=== PATIENT | female | born 1985 | race Caucasian/White ===

== ENCOUNTER 2017-01-08 11:58 | Emergency (ER) | payer SELFPAY ==
[~2017-01-08] VITALS: Ht 157.5 cm; Wt 46.7 kg
[2017-01-08 12:02] VITALS: Ht 157.5 cm; Wt 46.7 kg
--- OUTSIDE RECORDS SUMMARY | 2017-01-08 12:05 | XMS REPORT | Continuity of Care Document ---
Author Author [facility] Organization [facility] Address Unknown Phone Unavailable Allergies Active Description Code Type Severity Reaction Onset Reported/Identified Relationship to Patient Clinical Status Yes Penicillins Penicillins Drug Allergy Unknown RASH,REDNESS, EYES SWELL 10/24/2015 Yes Penicillins Penicillins Drug Allergy Unknown RASH,REDNESS, EYES SWELL 01/09/2016 Medications Problems Procedures Results Test Result Range URINALYSIS, ROUTINE - 10/18/15 21:20 UA LEUKOCYTE ESTERASE DIPSTICK 2+ NEGATIVE UA NITRITE DIPSTICK POSITIVE NEGATIVE UA PROTEIN DIPSTICK 2+ NEGATIVE UA GLUCOSE DIPSTICK NEGATIVE NEGATIVE UA KETONE DIPSTICK NEGATIVE NEGATIVE UA UROBILINOGEN DIPSTICK NORMAL NORMAL UA BILIRUBIN DIPSTICK NEGATIVE NEGATIVE UA BLOOD DIPSTICK 4+ NEGATIVE UA SPECIFIC GRAVITY 1.020 1.015-1.025 UR PH 6.5 5.0-7.0 UA MICROSCOPIC - 10/18/15 21:20 UA AMORPHOUS SEDIMENT NEGATIVE UA BACTERIA 2+ NEGATIVE UA BILIRUBIN CRYSTALS N NEGATIVE UA CALCIUM OXALATE CRYSTALS N NEGATIVE UA CYSTINE CRYSTALS N NEGATIVE UA EPITHELIAL CELLS 1+ epi/hpf 0 - 1+ UA LEUCINE CRYSTALS N NEGATIVE UA MUCUS NEGATIVE NEG TO 1+ UA RBC 3-5 rbc/hpf 0 - 3 UA TRICHOMONAS NEGATIVE NEGATIVE UA TRIPLE PHOSPHATE CRYSTALS N NEGATIVE UA TYROSINE CRYSTALS N NEGATIVE UA VOLUME FOR EXAM 12.0 mL (12mL STD) UA URIC ACID CRYSTALS N NEGATIVE UA WBC 50-100 wbc/hpf 0 - 5 UA YEAST NEGATIVE NEGATIVE URINE CULTURE - 10/18/15 21:20 Microbiology URINALYSIS, ROUTINE - 10/24/15 08:25 UA LEUKOCYTE ESTERASE DIPSTICK 2+ NEGATIVE UA NITRITE DIPSTICK NEGATIVE NEGATIVE UA PROTEIN DIPSTICK 2+ NEGATIVE UA GLUCOSE DIPSTICK NEGATIVE NEGATIVE UA KETONE DIPSTICK NEGATIVE NEGATIVE UA UROBILINOGEN DIPSTICK NORMAL NORMAL UA BILIRUBIN DIPSTICK NEGATIVE NEGATIVE UA BLOOD DIPSTICK 4+ NEGATIVE UA SPECIFIC GRAVITY 1.020 1.015-1.025 UR PH 6.0 5.0-7.0 UA MICROSCOPIC - 10/24/15 08:25 UA BACTERIA 3+ NEGATIVE UA CALCIUM OXALATE CRYSTALS PRESENT NEGATIVE UA EPITHELIAL CELLS 1+ epi/hpf 0 - 1+ UA MUCUS 2+ NEG TO 1+ UA RBC 20-50 rbc/hpf 0 - 3 UA VOLUME FOR EXAM 12.0 mL (12mL STD) UA WBC >100 wbc/hpf 0 - 5 URINE CULTURE - 10/24/15 08:25 Microbiology CBC W/DIFF - 10/24/15 08:55 EOSINOPHIL # 0.1 k/cumm 0.1-0.5 EOSINOPHIL % 1 % 2-4 GRANULOCYTE # 2.7 k/cumm 2.0-9.0 GRANULOCYTE % 48 % 50-75 LYMPHOCYTE # 2.4 k/cumm 1.0-4.0 LYMPHOCYTE % 42 % 20-30 MEAN CELL HGB 26.7 pg 27.0-33.0 MEAN CELL HGB CONCENTRATION 32.7 g/dL 32.0-37.0 MEAN CELL VOLUME 81.7 fl 80.0-100.0 MONOCYTE # 0.5 k/cumm 0.1-1.0 MONOCYTE % 9 % 4-6 RED BLOOD CELL 4.20 m/cumm 4.00-6.00 RED CELL DISTRIBUTION WIDTH 15.7 % 11.0- 15.6 WHITE BLOOD CELL 5.7 k/cumm 5.0-10.0 HEMOGLOBIN 11.2 gm/dL 12.0-16.0 HEMATOCRIT 34.3 % 37.0-47.0 PLATELET COUNT 232 k/cumm 150-450 METABOLIC PANEL, COMPREHN - 10/24/15 08:55 POTASSIUM 3.6 mmol/L 3.5-5.3 EST GFR (MDRD) > 60 mL/min > 59 ANION GAP 8 mmol/L 5-15 EST CrCl (CG) > 60 mL/min > 59 GLUCOSE 92 mg/dL 70-99 CALCIUM 8.7 mg/dL 8.5-10.1 BLOOD UREA NITROGEN 14 mg/dL 7-20 CREATININE 0.8 mg/dL 0.6-1.0 SODIUM 138 mmol/L 135-148 CHLORIDE 103 mmol/L 98-110 AST/SGOT 19 Units/L 10-37 ALT/SGPT 16 Units/L < 66 CARBON DIOXIDE 27 mmol/L 21-32 TOTAL PROTEIN 7.8 gm/dL 6.4-8.2 ALBUMIN 3.7 gm/dL 3.4-5.0 BILI TOTAL 0.4 mg/dL 0.0-1.0 ALKALINE PHOSPHATASE TOTAL 64 IU/L 45- 117 URINALYSIS, ROUTINE - 10/27/15 09:08 UA LEUKOCYTE ESTERASE DIPSTICK 2+ NEGATIVE UA NITRITE DIPSTICK NEGATIVE NEGATIVE UA PROTEIN DIPSTICK 2+ NEGATIVE UA GLUCOSE DIPSTICK NEGATIVE NEGATIVE UA KETONE DIPSTICK NEGATIVE NEGATIVE UA UROBILINOGEN DIPSTICK NORMAL NORMAL UA BILIRUBIN DIPSTICK NEGATIVE NEGATIVE UA BLOOD DIPSTICK 3+ NEGATIVE UA SPECIFIC GRAVITY 1.020 1.015-1.025 UR PH 6.0 5.0-7.0 UA MICROSCOPIC - 10/27/15 09:08 UA BACTERIA 2+ NEGATIVE UA EPITHELIAL CELLS 2+ epi/hpf 0 - 1+ UA RBC 5-10 rbc/hpf 0 - 3 UA VOLUME FOR EXAM 12.0 mL (12mL STD) UA WBC 50-100 wbc/hpf 0 - 5 UR TEST - 10/27/15 09:08 UR TEST NEGATIVE NEGATIVE URINE CULTURE - 10/27/15 09:08 Microbiology CBC W/DIFF - 10/27/15 09:40 EOSINOPHIL # 0.1 k/cumm 0.1-0.5 EOSINOPHIL % 1 % 2-4 GRANULOCYTE # 5.6 k/cumm 2.0-9.0 GRANULOCYTE % 67 % 50-75 LYMPHOCYTE # 1.9 k/cumm 1.0-4.0 LYMPHOCYTE % 23 % 20-30 MEAN CELL HGB 26.3 pg 27.0-33.0 MEAN CELL HGB CONCENTRATION 32.9 g/dL 32.0-37.0 MEAN CELL VOLUME 79.8 fl 80.0-100.0 MONOCYTE # 0.7 k/cumm 0.1-1.0 MONOCYTE % 9 % 4-6 RED BLOOD CELL 4.99 m/cumm 4.00-6.00 RED CELL DISTRIBUTION WIDTH 16.1 % 11.0- 15.6 WHITE BLOOD CELL 8.3 k/cumm 5.0-10.0 HEMOGLOBIN 13.1 gm/dL 12.0-16.0 HEMATOCRIT 39.8 % 37.0-47.0 PLATELET COUNT 261 k/cumm 150-450 METABOLIC PANEL, COMPREHN - 10/27/15 09:40 POTASSIUM 3.5 mmol/L 3.5-5.3 EST GFR (MDRD) > 60 mL/min > 59 ANION GAP 12 mmol/L 5-15 EST CrCl (CG) 59 mL/min > 59 GLUCOSE 90 mg/dL 70-99 CALCIUM 9.1 mg/dL 8.5-10.1 BLOOD UREA NITROGEN 13 mg/dL 7-20 CREATININE 1.0 mg/dL 0.6-1.0 SODIUM 138 mmol/L 135-148 CHLORIDE 102 mmol/L 98-110 AST/SGOT 26 Units/L 10-37 ALT/SGPT 25 Units/L < 66 CARBON DIOXIDE 24 mmol/L 21-32 TOTAL PROTEIN 8.9 gm/dL 6.4-8.2 ALBUMIN 4.2 gm/dL 3.4-5.0 BILI TOTAL 0.2 mg/dL 0.0-1.0 ALKALINE PHOSPHATASE TOTAL 73 IU/L 45- 117 LIPASE - 10/27/15 09:40 LIPASE 95 Units/L 73-393 GRAM STAIN - 01/09/16 19:20 Microbiology Encounters ACCT No. Visit Date/Time Discharge Status Pt. Type Provider Facility Loc./Unit Complaint [id number] 10/27/2015 08:52:00 2015 13:12:00 DIS Emergency Nick GUILLEN, Jr [facility] E.ED [id number] 10/24/2015 08:08:00 2015 10:25:00 DIS Emergency Dale GUILLEN, Oscar Castro [facility] E.ED [id number] 10/18/2015 20:51:00 2015 22:39:00 DIS Emergency Teodoro GUILLEN, Newton Velez [facility] E.ED
--- OUTSIDE RECORDS SUMMARY | 2017-01-08 12:05 | XMS REPORT | Referral Summary ---
Author Author [facility] Organization [facility] Address Unknown Phone Unavailable Care Team Providers Care Flare Stitcher Name Role Phone Tevin Clarke Primary Care Physician [phone] Encounter Date(s): 03/26/15 - 03/26/15 [facility] [address] [place] [address] [facility] Discharge Diagnosis: Hyperglycemia Discharge Diagnosis: Anemia Discharge Disposition: 01-Home or Self Care Attending Physician: Jeimy Clarke DO Admitting Physician: Jeimy Clarke DO Vital Signs Most recent to 1 oldest [Reference Range]: Temperature Oral 36.7 degC [35.8-37.3 degC] (03/26/15 8:34 AM) Peripheral Pulse 80 bpm Rate [60-100 bpm] (03/26/15 8:34 AM) Respiratory Rate 15 br/min [14-20 br/min] (03/26/15 8:34 AM) Blood Pressure 102/62 mmHg [90-140/60-90 mmHg] (03/26/15 8:34 AM) Problem List Condition Effective Dates Status Health Status Informant Anxiety(Confirmed) Active Bipolar Active disorder(Confirmed) Depression(Confirmed Active ) Abnormal uterine Active bleeding(Confirmed) Insomnia(Confirmed) Active Depression(Confirmed Active ) (Confirmed) 2007 Resolved Scoliosis(Confirmed) Active Allergies, Adverse Reactions, Alerts Substance Reaction Severity Status amoxicillin uNspecfied Active penicillin uNspecfied Active sulfamethoxazole uNspecfied Active Medications doxepin 25 mg oral capsule 25 mg 1 caps, Oral, Bedtime (once a day), # 30 caps, 0 Refill(s), Pharmacy: [facility]/ pharmacy #[id number], 1 caps Oral Bedtime (once a day) Start Date: 09/24/15 Status: Ordered Drisdol 50,000 intl units (1.25 mg) oral capsule See Instructions, TAKE ONE CAPSULE BY MOUTH EVERY WEEK, # 5 caps, 2 Refill(s), eRx: [facility]/pharmacy #[id number], TAKE ONE CAPSULE BY MOUTH EVERY WEEK Start Date: 03/15/15 Status: Ordered ferrous sulfate 325 mg (65 mg elemental iron) oral tablet 325 mg 1 tabs, Oral, BID, # 60 tabs, 0 Refill(s), Pharmacy: [facility]/pharmacy #[id number] , 1 tabs Oral BID Start Date: 03/30/15 Status: Ordered meloxicam 15 mg oral tablet 1 tabs, Oral, Daily, # 30 tabs, 0 Refill(s), Pharmacy: [facility]/pharmacy #[id number], 1 tabs Oral Daily Start Date: 11/13/14 Status: Ordered metFORMIN 500 mg oral tablet 500 mg 1 tabs, Oral, Daily, # 30 tabs, 3 Refill(s), [id number], 1 tabs Oral Daily Start Date: 03/01/15 Status: Ordered Neurontin 300 mg oral capsule See Instructions, TAKE ONE CAPSULE BY MOUTH AT BEDTIME, # 30 caps, 6 Refill(s), eRx: [facility]/pharmacy #[id number], TAKE ONE CAPSULE BY MOUTH AT BEDTIME Start Date: 05/11/15 Status: Ordered PARoxetine 30 mg oral tablet 30 mg 1 tabs, Oral, Daily, # 30 tabs, 2 Refill(s), [id number] , 1 tabs Oral Daily Start Date: 09/02/15 Status: Ordered traZODone 150 mg oral tablet See Instructions, TAKE 1 TABLET BY MOUTH AT BEDTIME, # 30 tabs, 6 Refill(s), eRx : [facility]/pharmacy #[id number], TAKE 1 TABLET BY MOUTH AT BEDTIME Start Date: 05/11/15 Status: Ordered Results Hematology Most recent to 1 oldest [Reference Range]: WBC [4.8-10.8 5.1 10*3/uL 10*3/uL] (03/26/15 9:11 AM) RBC [4.00-5.20 4.58 10*6/uL 10*6/uL] (03/26/15 9:11 AM) Hgb [12.0-16.0 10.9 gm/dL gm/dL] *LOW* (03/26/15 9:11 AM) Hct [37.0-47.0 %] 34.6 % *LOW* (03/26/15 9:11 AM) MCV [82.0-99.0 fL] 75.5 fL *LOW* (03/26/15 9:11 AM) MCH [27.0-32.0 pg] 23.8 pg *LOW* (03/26/15 9:11 AM) MCHC [32.0-36.0 31.5 gm/dL gm/dL] *LOW* (03/26/15 9:11 AM) RDW [11.5-14.5 %] 16.6 % *HI* (03/26/15 9:11 AM) Platelet [150-400 205 10*3/uL 10*3/uL] (03/26/15 9:11 AM) MPV [8.8-14.8 fL] 10.7 fL (03/26/15 9:11 AM) Immature 0.2 % Granulocytes (03/26/15:11 AM) [0.0-1.0 %] Neutrophils [51-75 40 % %] *LOW* (03/26/15 9:11 AM) Lymphocytes [20-46 46 % %] (03/26/15 9:11 AM) Monocytes [4-11 %] 12 % *HI* (03/26/15 9:11 AM) Eosinophils [0-4 %] 2 % (03/26/15 9:11 AM) Basophils [0-2 %] 0 % (03/26/15 9:11 AM) Neutro Absolute 2.03 10*3 [1.90-7.00 10*3] (03/26/15 9:11 AM) Lymph Absolute 2.35 10*3 [0.80-3.30 10*3] (03/26/15 9:11 AM) Fisher Absolute 0.62 10*3 [0.30-1.00 10*3] (03/26/15 9:11 AM) Eos Absolute 0.09 10*3 [0.00-0.50 10*3] (03/26/15 9:11 AM) Baso Absolute 0.01 10*3 [0.00-0.20 10*3] (03/26/15 9:11 AM) Reticulocyte <0.6 % [0.6-2.5 %] (03/26/15 9:11 AM) Smear Review By Jordan Barker DO, Medical Pathologist Director [facility] [address] [facility] [address] CLIA #[id number] [address] [facility], [address] CLIA #[id number] [facility] [address] [facility], [address] CLIA #[id number] Number [id number] Customer Service [phone] Final Clinical Pathology Consultation Diagnosis: PERIPHERAL BLOOD SMEAR REVIEW: - Mild microcytic, hypochromic anemia related to nutrient deficiency, with insufficient polychromasia. - Adequate WBCs and platelets without anomalies. Diagnostic Comment: The RBC morphology and results of iron profile are indicative of iron deficiency anemia. In addition, lab data show low folate level. Recommend evaluation for chronic bleeding, dietary deficiency or other cause of the patient's anemia. This diagnosis was rendered at [facility], [address] [place] [address]. <Sign Out Signature> THOMAS THOMPSON MD ph: 03/30/2015 Printed: 03/30/2015 5:34 PM [facility] PERIPHERAL BLOOD SMEARS CPT: 92768 x 1 Procedure Date 03/26/2015 THADDEUS ZAMORA Received Date 03/26/2015 Reported Date 03/30/2015 MR # [id number] Case # [id number] Location [address] Sex F 1985 ([facility]) Age 29 Y [address] Physician JEIMY CEDILLO DO (03/26/15 12:00 AM) Chemistry Most recent to 1 oldest [Reference Range]: Iron [50-170 mcg/dL] 11 mcg/dL *LOW* (03/26/15 9:11 AM) TIBC [260-445 396 mcg/dL mcg/dL] (03/26/15 9:11 AM) Unbound Iron Content 385 [126-382] *HI* (03/26/15 9:11 AM) Iron Sat [11-46 %] 3 % *LOW* (03/26/15 9:11 AM) Vitamin B12 Lvl 434 pg/mL [213-816 pg/mL] (03/26/15 9:11 AM) Folate Lvl [7.0-31.4 6.0 ng/mL ng/mL] *LOW* (03/26/15 9:11 AM) Immunizations No data available for this section Procedures Procedure Date Related Diagnosis Body Site section 2009 2 hr labor Cesarean1 10/09/07 H/O Spinal Surgery2 [facility] [address] Social History Social History Type Response Smoking Status Current every day smoker; Type: Cigarettes; Tobacco use per day: Less than Pack; Number of years: 10 Assessment and Plan Extracted from: Title: General Complaint * Author: Jeimy Clarke DO Date: 03/26/15 Impression and Plan Diagnosis Anemia (ICD9 285.1, Discharge, Medical). Hyperglycemia (ICD9 790.29, Discharge, Medical). Plan: discussed diet changes. recommend to watch sugars and continue metformin. recommend to get retic ct and b12 and folate and to get iron panel. recommend to repeat cbc. to get peripheral smear. suspect is diet related. recommend to await results. .
--- OUTSIDE RECORDS SUMMARY | 2017-01-08 12:05 | XMS REPORT | Referral Summary ---
Author Author [facility] Organization [facility] Address Unknown Phone Unavailable Care Team Providers Care Box Person Name Role Phone Tevin Clarke Primary Care Physician [phone] Encounter [facility] [id number] Date(s): 10/27/15 - 10/27/15 [facility] [address] [place], [place] [address] Discharge Diagnosis: Right kidney stone Discharge Disposition: 01-Home or Self Care Attending Physician: Rico Gupta MD Admitting Physician: Rico Gupta MD Vital Signs Most recent to 1 oldest [Reference Range]: Blood Pressure 100/60 mmHg [90-140/60-90 mmHg] (10/27/15 2:10 PM) Problem List Condition Effective Dates Status Health Status Informant Anxiety(Confirmed) Active Bipolar Active disorder(Confirmed) Depression(Confirmed Active ) Abnormal uterine Active bleeding(Confirmed) Insomnia(Confirmed) Active Depression(Confirmed Active ) (Confirmed) 2008 Resolved Scoliosis(Confirmed) Active Allergies, Adverse Reactions, Alerts Substance Reaction Severity Status amoxicillin uNspecfied Active penicillin uNspecfied Active sulfamethoxazole uNspecfied Active Medications ciprofloxacin 500 mg oral tablet 500 mg 1 tabs, Oral, Daily, # 10 tabs, 0 Refill(s) Start Date: 10/27/15 Status: Ordered doxepin 25 mg oral capsule 25 mg 1 caps, Oral, Bedtime (once a day), # 30 caps, 0 Refill(s), Pharmacy: [facility]/ pharmacy #[id number], 1 caps Oral Bedtime (once a day) Start Date: 09/24/15 Status: Ordered Drisdol 50,000 intl units (1.25 mg) oral capsule See Instructions, TAKE ONE CAPSULE BY MOUTH EVERY WEEK, # 5 caps, 2 Refill(s), eRx: [facility]/pharmacy #[id number], TAKE ONE CAPSULE BY MOUTH EVERY WEEK Start Date: 03/15/15 Status: Ordered ferrous sulfate 325 mg (65 mg elemental iron) oral tablet 325 mg 1 tabs, Oral, BID, # 60 tabs, 0 Refill(s), Pharmacy: [facility]/pharmacy #[id number] , 1 tabs Oral BID Start Date: 03/30/15 Status: Ordered meloxicam 15 mg oral tablet 1 tabs, Oral, Daily, # 30 tabs, 0 Refill(s), Pharmacy: [facility]/pharmacy #[id number], 1 tabs Oral Daily Start Date: 11/13/14 Status: Ordered metFORMIN 500 mg oral tablet 500 mg 1 tabs, Oral, Daily, # 30 tabs, 3 Refill(s), Pharmacy: [facility]/pharmacy # [id number], 1 tabs Oral Daily Start Date: 03/01/15 Status: Ordered Neurontin 300 mg oral capsule See Instructions, TAKE ONE CAPSULE BY MOUTH AT BEDTIME, # 30 caps, 6 Refill(s), eRx: [facility]/pharmacy #[id number], TAKE ONE CAPSULE BY MOUTH AT BEDTIME Start Date: 05/11/15 Status: Ordered PARoxetine 30 mg oral tablet 30 mg 1 tabs, Oral, Daily, # 30 tabs, 2 Refill(s), Pharmacy: [facility]/pharmacy #[id number] , 1 tabs Oral Daily Start Date: 09/02/15 Status: Ordered Percocet 10/325 oral tablet 1 tabs, Oral, q6hr, as needed for pain, # 25, 0 Refill(s) Start Date: 10/27/15 Status: Ordered traZODone 150 mg oral tablet See Instructions, TAKE 1 TABLET BY MOUTH AT BEDTIME, # 30 tabs, 6 Refill(s), eRx : [facility]/pharmacy #[id number], TAKE 1 TABLET BY MOUTH AT BEDTIME Start Date: 05/11/15 Status: Ordered Zofran 4 mg oral tablet 4 mg 1 tabs, Oral, q6hr, Nausea or Vomiting | as needed for nausea/vomiting, # 10 tabs, 0 Refill(s) Start Date: 10/27/15 Status: Ordered Results No data available for this section Immunizations No data available for this section Procedures Procedure Date Related Diagnosis Body Site section 2009 2 hr labor Cesarean1 10/09/07 H/O Spinal Surgery2 [facility] [address] Social History Social History Type Response Smoking Status Current every day smoker; Type: Cigarettes; Tobacco use per day: Less than Pack; Number of years: 10 Assessment and Plan Extracted from: Title: Office Visit Note Author: Rico Gupta MD Date: 10/27/15 Assessment/Plan 1.Right kidney stone I recommended cystoscopywith a rightretrograde pyelogramand placement of a double pigtailedureteral stentwith possible ureteroscopy. This scheduled forMarch 10. Then, as a second stageI think the patient should have apercutaneous nephrostolithotomy. The stone is too big for ESWL. I discussed the option oftransureterallaser pulverization of the stonebut I think this would take a large amount of time and I think the chances of removal of stoneand fragmentshis greater through the percutaneous approach. I also covered openrightpyelolithotomy and nephrolithotomy. Patient prefers the staged approachof stent placement followed bypercutaneous nephrostolithotomy. Rationale for procedures risks complications and side effectsdiscussed.Patient will stay on antibiotic for now. I wrote her a slip to stay off work. No driving or lifting. She has analgesic. I wrote her a prescriptionfor Reglan. Follow-up emphasized. 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
--- OUTSIDE RECORDS SUMMARY | 2017-01-08 12:05 | XMS REPORT | Referral Summary ---
Author Author [facility] Organization [facility] Address Unknown Phone Unavailable Care Team Providers Care Travel Physical Therapist Name Role Phone Tevin Clarke Primary Care Physician [phone] Encounter Date(s): 11/24/15 - 11/24/15 [facility] [address] [place], [place] [address] Discharge Diagnosis: Kidney stone Discharge Disposition: 01-Home or Self Care Attending Physician: Rico Gupta MD Admitting Physician: Rico Gupta MD Vital Signs No data available for this section Problem List Condition Effective Dates Status Health Status Informant Anxiety(Confirmed) Active Bipolar Active disorder(Confirmed) Depression(Confirmed Active ) Abnormal uterine Active bleeding(Confirmed) Impaired skin Active integrity(Confirmed) 1 Insomnia(Confirmed) Active Depression(Confirmed Active ) (Confirmed) 2007 Resolved Scoliosis(Confirmed) Active Tissue perfusion Active alteration(Confirmed )2 1Problem added automatically by system based on initiation of Impaired Skin Integrity Plan of Care 2Problem added automatically by system based on initiation of Tissue Perfusion Cerebral Plan of Care Allergies, Adverse Reactions, Alerts Substance Reaction Severity Status amoxicillin Rash Active Hives penicillin Rash Active Hives sulfamethoxazole uNspecfied Active Medications Neurontin 300 mg oral capsule See Instructions, TAKE ONE CAPSULE BY MOUTH AT BEDTIME, # 30 caps, 6 Refill(s), eRx: [facility]/pharmacy #[id number], TAKE ONE CAPSULE BY MOUTH AT BEDTIME Start Date: 05/11/15 Status: Ordered PARoxetine 30 mg oral tablet 30 mg 1 tabs, Oral, Daily, # 30 tabs, 2 Refill(s), Pharmacy: [facility]/pharmacy #[id number] , 1 tabs Oral Daily Start Date: 09/02/15 Status: Ordered Results No data available for this section Immunizations No data available for this section Procedures Procedure Date Related Diagnosis Body Site Cystourethroscopy, with removal of foreign 11/24/15 body, calculus, or ureteral stent from urethra or bladder (separate procedure); simple Nephrostolithotomy Percutaneous (Right)1 11/10/15 Cystoscopy Ureteral Stent Insertion (Right)2 10/28/15 section 2009 2 hr labor Cesarean3 10/09/07 H/O Spinal Surgery4 oral 1auto-populated from documented surgical case 2auto-populated from documented surgical case 3[facility] [address] Social History Social History Type Response Smoking Status Current every day smoker; Type: Cigarettes; Tobacco use per day: Less than Pack; Number of years: 10 Assessment and Plan Extracted from: Title: Office Visit Note Author: Rico Gupta MD Date: 11/24/15 Assessment/Plan 1.Kidney stone Precautions reviewed. Follow-up emphasized. Patient agreed to see me again in 3-4 weeks timeand sooner if needed.
--- OUTSIDE RECORDS SUMMARY | 2017-01-08 12:05 | XMS REPORT | Referral Summary ---
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 Role Phone Tevin Clarke Primary Care Physician [phone] Encounter Date(s): 09/02/15 - 09/02/15 [facility] [address] [place] [id number] [facility] Discharge Diagnosis: Chronic insomnia Discharge Diagnosis: Anxiety and depression Discharge Diagnosis: Anemia Discharge Disposition: 01-Home or Self Care Attending Physician: Swetha Reddy Admitting Physician: Swetha Reddy Vital Signs Most recent to 1 oldest [Reference Range]: Temperature Oral 36.8 degC [35.8-37.3 degC] (09/02/15 1:32 PM) Peripheral Pulse 84 bpm Rate [60-100 bpm] (09/02/15 1:32 PM) Respiratory Rate 12 br/min [14-20 br/min] *LOW* (09/02/15 1:32 PM) Blood Pressure 100/58 mmHg [90-140/60-90 mmHg] (09/02/15 1:32 PM) Problem List Condition Effective Dates Status [...] Bedtime (once a day), # 30 caps, 2 Refill(s), [id number], 1 caps Oral Bedtime (once a day) Start Date: 09/02/15 Status: Ordered Drisdol 50,000 intl units (1.25 mg) oral capsule See Instructions, TAKE ONE CAPSULE BY MOUTH EVERY WEEK, # 5 caps, 2 Refill(s), eRx: [facility]/pharmacy #[id number], TAKE ONE CAPSULE BY MOUTH EVERY WEEK Start Date: 03/15/15 Status: Ordered ferrous sulfate 325 mg (65 mg elemental iron) oral tablet 325 mg 1 tabs, Oral, BID, # 60 tabs, 0 Refill(s), [id number] , 1 tabs Oral BID Start Date: 03/30/15 Status: Ordered meloxicam 15 mg oral tablet 1 tabs, Oral, Daily, # 30 tabs, 0 Refill(s), Pharmacy: [facility]/pharmacy #[id number], 1 tabs Oral Daily Start Date: 11/13/14 Status: Ordered metFORMIN 500 mg oral tablet 500 mg 1 tabs, Oral, Daily, # 30 tabs, 3 Refill(s), [id number], 1 tabs Oral Daily Start Date: 03/01/15 Status: Ordered Neurontin 300 mg oral capsule See Instructions, TAKE ONE CAPSULE BY MOUTH AT BEDTIME, # 30 caps, 6 Refill(s), eRx: [facility]/pharmacy #[id number], TAKE ONE CAPSULE BY MOUTH AT BEDTIME Start Date: 05/11/15 Status: Ordered PARoxetine 30 mg oral tablet 30 mg 1 tabs, Oral, Daily, # 30 tabs, 2 Refill(s), Pharmacy: [facility]/pharmacy #[id number] , 1 tabs Oral Daily Start Date: 09/02/15 Status: Ordered traZODone 150 mg oral tablet See Instructions, TAKE 1 TABLET BY MOUTH AT BEDTIME, # 30 tabs, 6 Refill(s), eRx : [facility]/pharmacy #[id number], TAKE 1 TABLET BY MOUTH AT BEDTIME Start Date: 05/11/15 Status: Ordered Results Hematology Most recent to 1 oldest [Reference Range]: WBC [4.8-10.8 6.5 10*3/uL 10*3/uL] (09/02/15 2:16 PM) RBC [4.00-5.20] 4.34 (09/02/15 2:16 PM) Hgb [12.0-16.0 11.6 gm/dL gm/dL] *LOW* (09/02/15 2:16 PM) Hct [37.0-47.0 %] 35.5 % *LOW* (09/02/15 2:16 PM) MCV [82.0-99.0 fL] 81.8 fL *LOW* (09/02/15 2:16 PM) MCH [27.0-32.0 pg] 26.7 pg *LOW* (09/02/15 2:16 PM) MCHC [32.0-36.0 32.7 gm/dL gm/dL] (09/02/15 2:16 PM) RDW [11.5-14.5 %] 15.6 % *HI* (09/02/15 2:16 PM) Platelet [150-400 192 10*3/uL 10*3/uL] (09/02/15 2:16 PM) MPV [8.8-14.8 fL] 10.7 fL (09/02/15 2:16 PM) Immature 0.2 % Granulocytes (09/02/15 2:16 PM) [0.0-1.0 %] Neutrophils [51-75 57 % %] (09/02/15 2:16 PM) Lymphocytes [20-46 34 % %] (09/02/15 2:16 PM) Monocytes [4-11 %] 8 % (09/02/15 2:16 PM) Eosinophils [0-4 %] 1 % (09/02/15 2:16 PM) Basophils [0-2 %] 0 % (09/02/15 2:16 PM) Neutro Absolute 3.71 10*3 [1.90-7.00 10*3] (09/02/15 2:16 PM) Lymph Absolute 2.20 10*3 [0.80-3.30 10*3] (09/02/15 2:16 PM) [place] Absolute 0.53 10*3 [0.30-1.00 10*3] (09/02/15 2:16 PM) Eos Absolute 0.03 10*3 [0.00-0.50 10*3] (09/02/15 2:16 PM) Baso Absolute 0.02 10*3 [0.00-0.20 10*3] (09/02/15 2:16 PM) Chemistry Most recent to 1 oldest [Reference Range]: Sodium Lvl [135-144 139 mEq/L mEq/L] (09/02/15 2:16 PM) Potassium Lvl 3.5 mEq/L [3.5-5.2 mEq/L] (09/02/15 2:16 PM) Chloride [99-111 105 mEq/L mEq/L] (09/02/15 2:16 PM) CO2 [22-31 mEq/L] 24 mEq/L (09/02/15 2:16 PM) AGAP [3-20] 10 (09/02/15 2:16 PM) BUN [7-19 mg/dL] 9 mg/dL (09/02/15 2:16 PM) Glucose Lvl [70-99 86 mg/dL mg/dL] (09/02/15 2:16 PM) Creatinine Lvl 0.77 mg/dL [0.57-1.11 mg/dL] (09/02/15 2:16 PM) eGFR [>60 mL/min] >60 mL/min 1 (09/02/15 2:16 PM) Calcium Lvl 8.8 mg/dL [8.9-10.5 mg/dL] *LOW* (09/02/15 2:16 PM) Albumin Lvl [3.5-5.0 4.1 gm/dL gm/dL] (09/02/15 2:16 PM) Total Protein 7.1 gm/dL [6.4-8.3 gm/dL] (09/02/15 2:16 PM) Globulin [1.8-4.0 3.0 gm/dL gm/dL] (09/02/15 2:16 PM) ALT [0-55 U/L] 12 U/L (09/02/15 2:16 PM) AST [5-34 U/L] 17 U/L (09/02/15 2:16 PM) Alk Phos [40-150 58 U/L U/L] (09/02/15 2:16 PM) Bili Total [0.2-1.2 0.5 mg/dL mg/dL] (09/02/15 2:16 PM) Iron [50-170 mcg/dL] 18 mcg/dL *LOW* (09/02/15 2:16 PM) TSH with Reflex Free 0.89 T4 [0.35-4.94] (09/02/15 2:16 PM) 1Result Comment: Multiply eGFR results by 1.21 for race. Immunizations No data available for this section Procedures Procedure Date Related Diagnosis Body Site section 2009 2 hr labor Cesarean1 10/09/07 H/O Spinal Surgery2 [facility] [address] Social History Social History Type Response Smoking Status Current every day smoker; Type: Cigarettes; Tobacco use per day: Less than Pack; Number of years: 10 Assessment and Plan Extracted from: Title: Ambulatory Patient Education Author: Swetha Reddy Date: Family [facility] Depression Depression refers to feeling sad, low, down in the dumps, blue, gloomy, or empty. In general, there are two kinds of depression: 1. Normal sadness or normal grief. This kind of depression is one that we all feel from time to time after upsetting life experiences, such as the loss of a job or the ending of a relationship. This kind of depression is considered normal, is short lived, and resolves within a few days to 2 weeks. Depression experienced after the loss of a loved one (bereavement) often lasts longer than 2 weeks but normally gets better with time. 2. Clinical depression. This kind of depression lasts longer than normal sadness or normal grief or interferes with your ability to function at home, at work, and in school. It also interferes with your personal relationships. It affects almost every aspect of your life. Clinical depression is an illness. Symptoms of depression can also be caused by conditions other than those mentioned above, such as: Physical illness. Some physical illnesses, including underactive thyroid gland (hypothyroidism), severe anemia, specific types of cancer, diabetes, uncontrolled seizures, heart and lung problems, strokes, and chronic pain are commonly associated with symptoms of depression. Side effects of some prescription medicine. In some people, certain types of medicine can cause symptoms of depression. Substance abuse. Abuse of alcohol and illicit drugs can cause symptoms of depression. SYMPTOMS Symptoms of normal sadness and normal grief include the following: Feeling sad or crying for short periods of time. Not caring about anything (apathy). Difficulty sleeping or sleeping too much. No longer able to enjoy the things you used to enjoy. Desire to be by oneself all the time (social isolation). Lack of energy or motivation. Difficulty concentrating or remembering. Change in appetite or weight. Restlessness or agitation. Symptoms of clinical depression include the same symptoms of normal sadness or normal grief and also the following symptoms: Feeling sad or crying all the time. Feelings of guilt or worthlessness. Feelings of hopelessness or helplessness. Thoughts of suicide or the desire to harm yourself (suicidal ideation). Loss of touch with reality (psychotic symptoms). Seeing or hearing things that are not real (hallucinations) or having false beliefs about your life or the people around you (delusions and paranoia). DIAGNOSIS The diagnosis of clinical depression is usually based on how bad the symptoms are and how long they have lasted. Your health care provider will also ask you questions about your medical history and substance use to find out if physical illness, use of prescription medicine, or substance abuse is causing your depression. Your health care provider may also order blood tests. TREATMENT Often, normal sadness and normal grief do not require treatment. However, sometimes antidepressant medicine is given for bereavement to ease the depressive symptoms until they resolve. The treatment for clinical depression depends on how bad the symptoms are but often includes antidepressant medicine, counseling with a mental health professional, or both. Your health care provider will help to determine what treatment is best for you. Depression caused by physical illness usually goes away with appropriate medical treatment of the illness. If prescription medicine is causing depression , talk with your health care provider about stopping the medicine, decreasing the dose, or changing to another medicine. Depression caused by the abuse of alcohol or illicit drugs goes away when you stop using these substances. Some adults need professional help in order to stop drinking or using drugs. SEEK IMMEDIATE MEDICAL CARE IF: You have thoughts about hurting yourself or others. You lose touch with reality (have psychotic symptoms). You are taking medicine for depression and have a serious side effect. FOR MORE INFORMATION National [place] on Mental Illness: www.derek.org National [place] of Mental Health: www.nimh.nih.gov Document Released: 08/03/2001 Document Revised: 12/21/2014 Document Reviewed: Exit[employer] Patient Information 2015 [place]. This information is not intended to replace advice given to you by your health care provider. Make sure you discuss any questions you have with your health care provider. No follow up information was provided. Extracted from: Title: Depression Disease Author: Swetha Reddy Date: 09/02/15 Management * Impression and Plan Diagnosis Chronic insomnia (ZST77-HC G47.00, Discharge, Medical). Anxiety and depression (NFK77-AF F41.8, Discharge, Medical). Anemia (TVA99-MR D64.9, Discharge, Medical). Plan: discussion regarding pts anxiety and depression stop Fluoxetine and change to Paroxetine 30mg daily stop Trazodone at HS start Doxepin 25mg - take one to two at HS to help with sleep lab work today follow up with test results we will do med follow up in 4 weeks - sooner if needed.
--- OUTSIDE RECORDS SUMMARY | 2017-01-08 12:05 | XMS REPORT | Referral Summary ---
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 Name Role Phone Tevin Clarke Primary Care Physician [phone] [facility]counter [facility] [id number] Date(s): 02/26/15 - 02/26/15 [facility] [address] [place] [address] [facility] Discharge Diagnosis: Fibromyalgia Discharge Diagnosis: Frequent headaches Discharge Diagnosis: Depression Discharge Disposition: 01-Home or Self Care Attending Physician: Jeimy Green DO Admitting Physician: Jeimy Green DO Vital Signs Most recent to 1 oldest [Reference Range]: Temperature Oral 37 degC [35.8-37.3 degC] (02/26/15 11:04 AM) Peripheral Pulse 66 bpm Rate [60-100 bpm] (02/26/15 11:04 AM) Blood Pressure 110/80 mmHg [90-140/60-90 mmHg] (02/26/15 11:04 AM) Problem List Condition Effective Dates Status [...] day), # 30 caps, 2 Refill(s), Pharmacy: [facility]/ pharmacy #[id number], 1 caps Oral Bedtime (once a day) Start Date: 09/02/15 Status: Ordered Drisdol 50,000 intl units (1.25 mg) oral capsule See Instructions, TAKE ONE CAPSULE BY MOUTH EVERY WEEK, # 5 caps, 2 Refill(s), eRx: [facility]/pharmacy #[id number], TAKE ONE CAPSULE BY MOUTH EVERY WEEK Start Date: 03/15/15 Status: Ordered ferrous sulfate 325 mg (65 mg elemental iron) oral tablet 325 mg 1 tabs, Oral, BID, # 60 tabs, 0 Refill(s), Pharmacy: [facility]/pharmacy #[id number] , 1 tabs Oral BID Start Date: 03/30/15 Status: Ordered meloxicam 15 mg oral tablet 1 tabs, Oral, Daily, # 30 tabs, 0 Refill(s), Pharmacy: [facility]/pharmacy #[id number], 1 tabs Oral Daily Start Date: 11/13/14 Status: Ordered metFORMIN 500 mg oral tablet 500 mg 1 tabs, Oral, Daily, # 30 tabs, 3 Refill(s), Pharmacy: [facility]/pharmacy # [id number], 1 tabs Oral Daily Start Date: 03/01/15 Status: Ordered Neurontin 300 mg oral capsule See Instructions, TAKE ONE CAPSULE BY MOUTH AT BEDTIME, # 30 caps, 6 Refill(s), eRx: [facility]/pharmacy #[id number], TAKE ONE CAPSULE BY MOUTH AT BEDTIME Start Date: 05/11/15 Status: Ordered PARoxetine 30 mg oral tablet 30 mg 1 tabs, Oral, Daily, # 30 tabs, 2 Refill(s), Pharmacy: [facility]/pharmacy #[id number] , 1 tabs Oral Daily Start Date: 09/02/15 Status: Ordered traZODone 150 mg oral tablet See Instructions, TAKE 1 TABLET BY MOUTH AT BEDTIME, # 30 tabs, 6 Refill(s), eRx : [facility]/pharmacy #[id number], TAKE 1 TABLET BY MOUTH AT BEDTIME Start Date: 05/11/15 Status: Ordered Results Hematology Most recent to 1 oldest [Reference Range]: WBC [4.8-10.8 6.3 10*3/uL 10*3/uL] (02/26/15 11:21 AM) RBC [4.00-5.20 4.65 10*6/uL 10*6/uL] (02/26/15 11:21 AM) Hgb [12.0-16.0 11.3 gm/dL gm/dL] *LOW* (02/26/15 11:21 AM) Hct [37.0-47.0 %] 35.0 % *LOW* (02/26/15 AM) MCV [82.0-99.0 fL] 75.3 fL *LOW* (02/26/15) MCH [27.0-32.0 pg] 24.3 pg *LOW* (02/26/15 AM) MCHC [32.0-36.0 32.3 gm/dL gm/dL] (02/26/15 AM) RDW [11.5-14.5 %] 17.0 % *HI* (02/26/15 AM) Platelet [150-400 232 10*3/uL 10*3/uL] (02/26/15 AM) MPV [8.8-14.8 fL] 10.9 fL (02/26/15) Neutrophils [51-75 24 % %] *LOW* (02/26/15) Lymphocytes [20-46 71 % %] *HI* (02/26/15) Monocytes [4-11 %] 1 % *LOW* (02/26/15 AM) Eosinophils [0-4 %] 3 % (02/26/15 AM) Basophils [0-2 %] 1 % (02/26/15) Neutro Absolute 1.51 10*3 [1.90-7.00 10*3] *LOW* (02/26/15 AM) Lymph Absolute 4.47 10*3 [0.80-3.30 10*3] *HI* (02/26/15 AM) [place] Absolute 0.06 10*3 [0.30-1.00 10*3] *LOW* (02/26/15 AM) Eos Absolute 0.19 10*3 [0.00-0.50 10*3] (02/26/15 AM) Baso Absolute 0.06 10*3 [0.00-0.20 10*3] (02/26/15 AM) Differential Manual *ABN* (02/26/15) Chemistry Most recent to 1 oldest [Reference Range]: Sodium Lvl [135-144 141 mEq/L mEq/L] (02/26/15) Potassium Lvl 3.9 mEq/L [3.5-5.2 mEq/L] (02/26/15) Chloride [99-111 106 mEq/L mEq/L] (02/26/15) CO2 [22-31 mEq/L] 26 mEq/L (02/26/15) AGAP [3-20] 9 (02/26/15) BUN [7-19 mg/dL] 11 mg/dL (02/26/15) Glucose Lvl [70-99 88 mg/dL mg/dL] (02/26/15) Creatinine Lvl 0.81 mg/dL [0.57-1.11 mg/dL] (02/26/15) eGFR [>60 mL/min] >60 mL/min 1 (02/26/15) Calcium Lvl 9.4 mg/dL [8.9-10.5 mg/dL] (02/26/15) Albumin Lvl [3.5-5.0 4.1 gm/dL gm/dL] (02/26/15) Total Protein 7.3 gm/dL [6.4-8.3 gm/dL] (02/26/15) Globulin [1.8-4.0 3.2 gm/dL gm/dL] (02/26/15) ALT [0-55 U/L] 16 U/L (02/26/15) AST [5-34 U/L] 21 U/L (02/26/15 AM) Alk Phos [40-150 65 U/L U/L] (02/26/15 AM) Bili Total [0.2-1.2 0.5 mg/dL mg/dL] (02/26/15 AM) Chol [0-199 mg/dL] 143 mg/dL (02/26/15 AM) Trig [0-149 mg/dL] 87 mg/dL (02/26/15) HDL [40-84 mg/dL] 55 mg/dL (02/26/15 11:21 AM) LDL [0-130 mg/dL] 71 mg/dL (02/26/15: AM) VLDL Cholesterol 17 mg/dL [0-28 mg/dL] (02/26/15:21 AM) Cardiac Risk 2.6 [0.0-5.0] (02/26/15:21 AM) TSH with Reflex Free 2.47 T4 [0.35-4.94] (02/26/15:21 AM) Hgb A1c [4.1-5.6 %] 5.9 % *HI* (02/26/15 11:21 AM) eAvg Glucose 122.6 mg/dL (02/26/15: AM) 1Result Comment: Multiply eGFR results by 1.21 for race. Immunizations No data available for this section Procedures Procedure Date Related Diagnosis Body Site section 2009 2 hr labor Cesarean1 10/09/07 H/O Spinal Surgery2 [facility] [address] Social History Social History Type Response Smoking Status Current every day smoker; Type: Cigarettes; Tobacco use per day: Less than Pack; Number of years: 10 Assessment and Plan Extracted from: Title: General Complaint * Author: Jeimy Green DO Date: 02/26/15 Impression and Plan Diagnosis Depression (ICD9 311, Discharge, Medical). Fibromyalgia (ICD9 729.1, Discharge, Medical). Frequent headaches (ICD9 784.0, Discharge, Medical). Plan: recommend to change from neurontin to lyrica to see if this aids pain. recommend to get a1c and tsh in office. she has lost 20 lbs. discussed headahces may be from hypoglycemia and not eating well to increase her protein in diet. and increase fluid intake. recommend to follow up in one month. .
--- OUTSIDE RECORDS SUMMARY | 2017-01-08 12:05 | XMS REPORT | Referral Summary ---
Author Author [facility] Organization [facility] Address Unknown Phone Unavailable Care Team Providers Care Care Clinician Name Role Phone Tevin Clarke Primary Care Physician [phone] Encounter [facility] [id number] Date(s): 11/26/15 - 11/26/15 [facility] [address] [place], [place] [address] Discharge Diagnosis: Right kidney stone Discharge Disposition: 01-Home or Self Care Attending Physician: Rico Gputa MD Admitting Physician: Rico Gupta MD Vital Signs Most recent to 1 oldest [Reference Range]: Blood Pressure 100/60 mmHg [90-140/60-90 mmHg] (11/26/15 1:02 PM) Problem List Condition Effective Dates Status [...] BEDTIME, # 30 caps, 6 Refill(s), [id number], TAKE ONE CAPSULE BY MOUTH AT BEDTIME Start Date: 05/11/15 Status: Ordered PARoxetine 30 mg oral tablet 30 mg 1 tabs, Oral, Daily, # 30 tabs, 2 Refill(s), [id number] , 1 tabs Oral Daily Start Date: 09/02/15 Status: Ordered Results No data available for this section Immunizations No data available for this section Procedures Procedure Date Related Diagnosis Body Site Nephrostolithotomy Percutaneous (Right)1 11/10/15 Cystoscopy Ureteral Stent Insertion (Right)2 10/28/15 section 2009 2 hr labor Cesarean3 10/09/07 H/O Spinal Surgery4 oral 1auto-populated from documented surgical case 2auto-populated from documented surgical case 3[facility] [id number] Social History Social History Type Response Smoking Status Current every day smoker; Type: Cigarettes; Tobacco use per day: Less than Pack; Number of years: 10 Assessment and Plan No data available for this section
--- OUTSIDE RECORDS SUMMARY | 2017-01-08 12:05 | XMS REPORT | Referral Summary ---
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 Role Phone Tevin Clarke Primary Care Physician [phone] [facility]counter [facility] Date(s): 10/28/15 - 10/28/15 [facility] [address] [place], [place] [address] Discharge Diagnosis: Right kidney stone Discharge Disposition: 01-Home or Self Care Attending Physician: Rico Gupta MD Admitting Physician: Rico Gupta MD Vital Signs Most recent to 1 oldest [Reference Range]: Temperature Temporal 36.4 degC Artery [36.3-37.8 (10/28/15 11:00 AM) degC] Peripheral Pulse 70 bpm Rate [60-100 bpm] (10/28/15 5:59 AM) Heart Rate Monitored 51 bpm [60-100 bpm] *LOW* (10/28/15 11:30 AM) Respiratory Rate 12 br/min [14-20 br/min] *LOW* (10/28/15 11:15 AM) Blood Pressure 105/70 mmHg [90-140/60-90 mmHg] (10/28/15 11:30 AM) Mean Arterial 86 mmHg Pressure, Cuff (10/28/15 11:30 AM) SpO2 100 % (10/28/15 11:30 AM) Problem List Condition Effective Dates Status Health Status Informant Anxiety(Confirmed) Active Bipolar Active disorder(Confirmed) Depression(Confirmed Active ) Abnormal uterine Active bleeding(Confirmed) Insomnia(Confirmed) Active Depression(Confirmed Active ) (Confirmed) 2008 Resolved Scoliosis(Confirmed) Active Allergies, Adverse Reactions, Alerts Substance Reaction Severity Status amoxicillin Rash Active Hives penicillin Rash Active Hives sulfamethoxazole uNspecfied Active Medications doxepin 25 mg oral capsule 25 mg 1 caps, Oral, Bedtime (once a day), # 30 caps, 0 Refill(s), [id number], 1 caps Oral Bedtime (once a day) Start Date: 09/24/15 Status: Ordered ferrous sulfate 325 mg (65 mg elemental iron) oral tablet 325 mg 1 tabs, Oral, BID, # 60 tabs, 0 Refill(s), Pharmacy: [facility]/pharmacy #[id number] , 1 tabs Oral BID Start Date: 03/30/15 Status: Ordered Neurontin 300 mg oral capsule See Instructions, TAKE ONE CAPSULE BY MOUTH AT BEDTIME, # 30 caps, 6 Refill(s), eRx: [facility]/pharmacy #[id number], TAKE ONE CAPSULE BY MOUTH AT BEDTIME Start Date: 05/11/15 Status: Ordered PARoxetine 30 mg oral tablet 30 mg 1 tabs, Oral, Daily, # 30 tabs, 2 Refill(s), Pharmacy: [facility]/pharmacy #[id number] , 1 tabs Oral Daily Start Date: 09/02/15 Status: Ordered Percocet 10/325 oral tablet 1 tabs, Oral, q6hr, as needed for pain, # 25, 0 Refill(s) Start Date: 10/27/15 Status: Ordered Results Chemistry Most recent to 1 oldest [Reference Range]: Blood Glucose, 93 mg/dL Capillary [70-100 (10/28/15 6:04 AM) mg/dL] U Beta hCG Ql Negative (10/28/15 5:59 AM) Immunizations No data available for this section Procedures Procedure Date Related Diagnosis Body Site Cystoscopy Ureteral Stent Insertion (Right)1 10/28/15 section 2009 2 hr labor Cesarean2 10/09/07 H/O Spinal Surgery3 oral 1auto-populated from documented surgical case [facility] [id number] Social History Social History Type Response Smoking Status Current every day smoker; Type: Cigarettes; Tobacco use per day: Less than Pack; Number of years: 10 Assessment and Plan No data available for this section
--- OUTSIDE RECORDS SUMMARY | 2017-01-08 12:05 | XMS REPORT | Referral Summary ---
Author Organization Unknown Address Unknown Phone Unavailable Care Team Providers Care Drinking Water Technician Name Role Phone Tevin Green Primary Care Physician [phone] Encounter VC KAREN [id number] Date(s): 12/10/14 - 12/10/14 [facility] EDDIE De Leon, [address] [place] [address] Medicine [address] [address] [facility] Discharge Diagnosis: Acute sinusitis Discharge Disposition: Home or Self Care Attending Physician: Rico Herrmann Jr Admitting Physician: Rico Herrmann Jr Vital Signs Most recent to 1 oldest [Reference Range]: Temperature Oral 36.4 degC [35.8-37.3 degC] (12/10/14 1:02 PM) Peripheral Pulse 88 bpm Rate [60-100 bpm] (12/10/14 1:02 PM) Respiratory Rate 12 br/min [14-20 br/min] *LOW* (12/10/14 1:02 PM) Blood Pressure 100/56 mmHg [90-140/60-90 mmHg] (12/10/14 1:02 PM) Problem List Condition Effective Dates Status Health Status Informant Anxiety(Confirmed) Active Bipolar Active disorder(Confirmed) Depression(Confirmed Active ) Abnormal uterine Active bleeding(Confirmed) Insomnia(Confirmed) Active Depression(Confirmed Active ) (Confirmed) 2008 Resolved Scoliosis(Confirmed) Active Allergies, Adverse Reactions, Alerts Substance Reaction Severity Status amoxicillin uNspecfied Active penicillin uNspecfied Active sulfamethoxazole uNspecfied Active Medications clindamycin 1% topical gel 1 ronnie, Topical, BID, # 60 g, 11 Refill(s), Pharmacy: [facility]/pharmacy #[id number] Start Date: 10/26/14 Status: Ordered Drisdol 50,000 intl units (1.25 mg) oral capsule 1 caps, Oral, qWeek, # 5 caps, 3 Refill(s), Pharmacy: [facility]/pharmacy #[id number], 1 caps Oral qWeek,x30 days Start Date: 10/28/14 Stop Date: 02/25/15 Status: Ordered meloxicam 15 mg oral tablet 1 tabs, Oral, Daily, # 30 tabs, 0 Refill(s), [id number], 1 tabs Oral Daily Start Date: 11/13/14 Status: Ordered Neurontin 300 mg oral capsule 1 caps, Oral, Bedtime (once a day), # 30 caps, 6 Refill(s), Pharmacy: [facility]/ pharmacy #[id number], 1 caps Oral Bedtime (once a day) Start Date: 10/26/14 Status: Ordered ProAir HFA 90 mcg/inh inhalation aerosol 1 puffs, Inhalation, q6hr, as needed for wheezing, # 8.5 g, 1 Refill(s), Pharmacy: [facility]/pharmacy #[id number] Start Date: 12/10/14 Status: Ordered PROzac 20 mg oral capsule 1 caps, Oral, Daily, # 30 caps, 4 Refill(s), [id number], 1 caps Oral Daily Start Date: 10/26/14 Status: Ordered traZODone 150 mg oral tablet 1 tabs, Oral, Bedtime (once a day), # 30 tabs, 6 Refill(s), Pharmacy: [facility] pharmacy #[id number], 1 tabs Oral Bedtime (once a day) Start Date: 10/26/14 Status: Ordered Zithromax Z-Riley 250 mg oral tablet 1 packets, Oral, Daily, as directed on package labeling, X 5 days, # 6 tabs, 0 Refill(s), [id number], 1 packets Oral Daily,x5 days,Instr:as directed on package labeling Special Instructions: as directed on package labeling Start Date: 12/10/14 Stop Date: 12/15/14 Status: Ordered Results No data available for this section Immunizations No data available for this section Procedures Procedure Date Related Diagnosis Body Site section 2009 2 hr labor Cesarean1 10/09/07 H/O Spinal Surgery2 [facility] [address] Social History Social History Type Response Smoking Status Current every day smoker; Type: Cigarettes; Tobacco use per day: Less than Pack; Number of years: 10 Assessment and Plan Extracted from: Title: Cough * Author: Rico Herrmann Jr Date: 4/23/15 Impression and Plan Diagnosis Acute sinusitis (ICD9 461.9, Discharge, Medical). Plan: Advise increase rest and fluids start the Zithromax as directed refilled her albuterol inhaler to take as needed. If not improved or well the next 5-7 days recheck..
--- OUTSIDE RECORDS SUMMARY | 2017-01-08 12:06 | XMS REPORT | Referral Summary ---
Author Organization Unknown Address Unknown Phone Unavailable Care Team Providers Care Finish Inspector Name Role Phone Tevin Green Primary Care Physician [phone] Encounter VC Date(s): 10/26/14 - 10/26/14 Via Araceli De Leon, EDDIE, [address] [place] [address], Family Medicine [address] [address] [facility] Discharge Diagnosis: Depression Discharge Diagnosis: Acne Discharge Diagnosis: Myalgia Discharge Diagnosis: Vitamin D deficiency Discharge Diagnosis: Insomnia Discharge Disposition: Home or Self Care Attending Physician: eJimy Green DO Admitting Physician: Jeimy Green DO Vital Signs Most recent to 1 oldest [Reference Range]: Temperature Oral 36.8 degC [35.8-37.3 degC] (10/26/14 11:01 AM) Apical Heart Rate 70 bpm [60-100 bpm] (10/26/14 11:01 AM) Blood Pressure 110/72 mmHg [90-140/60-90 mmHg] (10/26/14 11:01 AM) Problem List Condition Effective Dates Status [...] BID, # 60 g, 11 Refill(s), Pharmacy: [facility]/pharmacy #[id number] Start Date: 10/26/14 Status: Ordered Neurontin 300 mg oral capsule 1 caps, Oral, Bedtime (once a day), # 30 caps, 6 Refill(s), Pharmacy: [facility]/ pharmacy #[id number], 1 caps Oral Bedtime (once a day) Start Date: 10/26/14 Status: Ordered PROzac 20 mg oral capsule 1 caps, Oral, Daily, # 30 caps, 4 Refill(s), [id number], 1 caps Oral Daily Start Date: 10/26/14 Status: Ordered traZODone 150 mg oral tablet 1 tabs, Oral, Bedtime (once a day), # 30 tabs, 6 Refill(s), Pharmacy: [facility] pharmacy #[id number], 1 tabs Oral Bedtime (once a day) Start Date: 10/26/14 Status: Ordered Vitamin D2 50,000 intl units (1.25 mg) oral capsule 1 caps, Oral, 2x/Wk, for 12 weeks, # 24 caps, 0 Refill(s), Pharmacy: [facility] pharmacy #[id number], 1 caps Oral 2x/Wk,Instr:for 12 weeks Special Instructions: for 12 weeks Start Date: 07/31/14 Status: Ordered Results No data available for this section Immunizations No data available for this section Procedures Procedure Date Related Diagnosis Body Site section 2009 2 hr labor Cesarean1 10/09/07 H/O Spinal Surgery2 [facility] [address] Social History Social History Type Response Smoking Status Current every day smoker; Type: Cigarettes; Tobacco use per day: Less than Pack; Number of years: 10 Assessment and Plan Extracted from: Title: General Complaint * Author: Jeimy Green DO Date: 10/26/14 Impression and Plan Diagnosis Acne (ICD9 706.1, Discharge, Medical). Depression (ICD9 311, Discharge, Medical). Insomnia (ICD9 780.52, Discharge, Medical). Myalgia (ICD9 729.1, Discharge, Medical). Vitamin D deficiency (ICD9 268.9, Discharge, Medical). Plan: recommend tiral of neurontin at hs for pain. recommend trial of trazodone ast hs for sleep. discussed side effects in office. to get vitamin d level as was low in past. recommend exercise and sleep hygeine. she did sign controlled substance agreement to not have narctoics for 1 year. started on prozac for depressin. recommend follow up in one month. , to use clindamycin for acne at hs. gel. .
--- OUTSIDE RECORDS SUMMARY | 2017-01-08 12:06 | XMS REPORT | Referral Summary ---
Author Author [facility] Organization [facility] Address Unknown Phone Unavailable Care Team Providers Care Glass Cutter Hand Name Role Phone Tevin Clarke Primary Care Physician [phone] Encounter VC Date(s): 11/10/15 - 11/12/15 [facility] [address], [place] [address] Discharge Disposition: 01-Home or Self Care Attending Physician: Rcio Gupta MD Admitting Physician: Rico Gupta MD Vital Signs Most recent to 1 oldest [Reference Range]: Temperature Oral 36.9 degC [35.8-37.3 degC] (11/12/15 3:05 PM) Temperature Temporal 36.8 degC Artery [36.3-37.8 (11/10/15 12:50 PM) degC] Peripheral Pulse 67 bpm Rate [60-100 bpm] (11/12/15 3:05 PM) Heart Rate Monitored 82 bpm [60-100 bpm] (11/12/15 4:32 AM) Respiratory Rate 16 br/min [14-20 br/min] (11/12/15 3:05 PM) Blood Pressure 94/56 mmHg [90-140/60-90 mmHg] (11/12/15 3:05 PM) Mean Arterial 60 mmHg Pressure, Cuff (11/11/15 4:00 AM) SpO2 96 % (11/12/15 3:05 PM) Problem List Condition Effective Dates Status [...] BEDTIME, # 30 caps, 6 Refill(s), eRx: [facility]/pharmacy #[id number], TAKE ONE CAPSULE BY MOUTH AT BEDTIME Start Date: 05/11/15 Status: Ordered PARoxetine 30 mg oral tablet 30 mg 1 tabs, Oral, Daily, # 30 tabs, 2 Refill(s), Pharmacy: [facility]/pharmacy #[id number] , 1 tabs Oral Daily Start Date: 09/02/15 Status: Ordered Results Hematology Most recent to 1 oldest [Reference Range]: WBC [4.8-10.8 5.7 10*3/uL 10*3/uL] (11/10/15 6:31 AM) RBC [4.00-5.20] 4.60 (11/10/15 6:31 AM) Hgb [12.0-16.0 10.3 gm/dL gm/dL] *LOW* (11/11/15 6:38 AM) Hct [37.0-47.0 %] 37.2 % (11/10/15 6:31 AM) MCV [82.0-99.0 fL] 80.9 fL *LOW* (11/10/15 6:31 AM) MCH [27.0-32.0 pg] 26.1 pg *LOW* (11/10/15 6:31 AM) MCHC [32.0-36.0 32.3 gm/dL gm/dL] (11/10/15 6:31 AM) RDW [11.5-14.5 %] 15.8 % *HI* (11/10/15 6:31 AM) Platelet [150-400 192 10*3/uL 10*3/uL] (11/10/15 6:31 AM) MPV [9.4-12.4 fL] 10.1 fL (11/10/15 6:31 AM) Immature 0.2 % Granulocytes (11/10/15 6:31 AM) [0.0-1.0 %] Neutrophils [51-75 47 % %] *LOW* (11/10/15 6:31 AM) Lymphocytes [20-46 38 % %] (11/10/15 6:31 AM) Monocytes [4-11 %] 12 % *HI* (11/10/15 6:31 AM) Eosinophils [0-4 %] 2 % (11/10/15 6:31 AM) Basophils [0-2 %] 1 % (11/10/15 6:31 AM) Neutro Absolute 2.66 10*3 [1.90-7.00 10*3] (11/10/15 6:31 AM) Lymph Absolute 2.18 10*3 [0.80-3.30 10*3] (11/10/15 6:31 AM) Wayne Absolute 0.70 10*3 [0.30-1.00 10*3] (11/10/15 6:31 AM) Eos Absolute 0.14 10*3 [0.00-0.50 10*3] (11/10/15 6:31 AM) Baso Absolute 0.03 10*3 [0.00-0.20 10*3] (11/10/15 6:31 AM) Coagulation Most recent to 1 oldest [Reference Range]: INR [0.9-1.2] 1.3 *HI* (11/10/15 6:31 AM) PTT [25.0-35.0 32.4 seconds seconds] (11/10/15 6:31 AM) Chemistry Most recent to 1 oldest [Reference Range]: Sodium Lvl [136-144 135 mEq/L mEq/L] *LOW* (11/11/15 6:38 AM) Potassium Lvl 4.0 mEq/L [3.6-5.1 mEq/L] (11/11/15 6:38 AM) Chloride [99-109 104 mEq/L mEq/L] (11/11/15 6:38 AM) CO2 [22-32 mEq/L] 24 mEq/L (11/11/15 6:38 AM) AGAP [3-20] 7 (11/11/15 6:38 AM) BUN [4-20 mg/dL] 12 mg/dL (11/11/15 6:38 AM) Glucose Lvl [70-100 113 mg/dL mg/dL] *HI* (11/11/15 6:38 AM) Creatinine Lvl 0.76 mg/dL [0.44-1.03 mg/dL] (11/11/15 6:38 AM) eGFR [>60] >60 1 (11/11/15 6:38 AM) Calcium Lvl 8.3 mg/dL [8.6-10.0 mg/dL] *LOW* (11/11/15 6:38 AM) Blood Glucose, 74 mg/dL Capillary [70-100 (11/10/15 6:29 AM) mg/dL] U Beta hCG Ql Negative (11/10/15 6:31 AM) 1Result Comment: Multiply eGFR results by 1.21 for race. Blood Bank Results Most recent to 1 oldest [Reference Range]: ABO/Rh A POS (11/10/15 6:31 AM) Antibody Screen Tube NEG (11/10/15 6:31 AM) Immunizations No data available for this section Procedures Procedure Date Related Diagnosis Body Site Injection procedure for antegrade 11/12/15 nephrostogram and/or ureterogram, complete diagnostic procedure including imaging guidance (eg, ultrasound and fluoroscopy) and all associated radiological supervision and interpretation; existing access Removal of nephrostomy tube, requiring 11/12/15 fluoroscopic guidance (eg, with concurrent indwelling ureteral stent).. Introduction of guide into renal pelvis 11/10/15 and/or ureter with dilation to establish nephrostomy tract, percutaneous.. Nephrostolithotomy Percutaneous (Right)1 11/10/15 Placement of nephroureteral catheter, 11/10/15 percutaneous, including diagnostic nephrostogram and/or ureterogram when performed, imaging guidance (eg, ultrasound and/or fluoroscopy) and all associated radiological supervision and interpretation, new access Cystoscopy Ureteral Stent Insertion (Right)2 10/28/15 section 2009 2 hr labor Cesarean3 10/09/07 H/O Spinal Surgery4 oral 1auto-populated from documented surgical case 2auto-populated from documented surgical case [facility] [address] Social History Social History Type Response Smoking Status Current every day smoker; Type: Cigarettes; Tobacco use per day: Less than Pack; Number of years: 10 Assessment and Plan Extracted from: Title: Progress/SOAP Note Author: Rico Gupta MD Date: 11/11/15 Assessment/Plan stable. voiding well. oob well. urine clear. nephrostomy tube out tomorrow if no problems overnight. precautions discussed.
--- OUTSIDE RECORDS SUMMARY | 2017-01-08 12:06 | XMS REPORT | Referral Summary ---
Author Author [facility] Organization [facility] Address Unknown Phone Unavailable Care Team Providers Care Style Advisor Name Role Phone Tevin Clarke Primary Care Physician [phone] Encounter VC Date(s): 11/23/15 - 11/23/15 [facility] [address] [place], [place] [address] Discharge Disposition: 01-Home or Self Care Attending Physician: Rico Gupta MD Vital Signs No [...] BEDTIME, # 30 caps, 6 Refill(s), eRx: [facility] #[id number], TAKE ONE CAPSULE BY MOUTH AT BEDTIME Start Date: 05/11/15 Status: Ordered PARoxetine 30 mg oral tablet 30 mg 1 tabs, Oral, Daily, # 30 tabs, 2 Refill(s), Pharmacy: [facility] #[id number] , 1 tabs Oral Daily Start Date: 09/02/15 Status: Ordered Results No data available for this section Immunizations No data available for this section Procedures Procedure Date Related Diagnosis Body Site Nephrostolithotomy Percutaneous (Right)1 11/10/15 Cystoscopy Ureteral Stent Insertion (Right)2 10/28/15 section 2009 2 hr labor Cesarean3 10/09/07 H/O Spinal Surgery4 oral 1auto-populated from documented surgical case 2auto-populated from documented surgical case 3[facility] [id number] Social History Social History Type Response Smoking Status Current every day smoker; Type: Cigarettes; Tobacco use per day: Less than Pack; Number of years: 10 Assessment and Plan No data available for this section
--- NOTE | 2017-01-08 12:37 | ERPDOC ---
Departure Disposition Decision Date: January 08, 2017 Disposition Decision Time: 15:53 Disposition: 01 DISCHARGED HOME, SELF-CARE Impression Impression Impression: Primary Impression: Kidney stone Severity: Moderate Condition: Improved Seen By: Physician only Patient Instructions: Kidney Stones (ED) Problems/Meds/Labs Reviewed?: Yes Medications reviewed and manag: Yes Additional Instructions: Increase fluid. Percocet 5 mg, one to 2 tabs every 6 hours as needed for pain. Zofran 4 mg, one tablet every 6 hours as needed for nausea. Flomax 0.4 mg daily. Please contact Dr. Rivas at the number listed above to set up an appointment for evaluation this week. Follow up care ordered?: Yes Mental Status: Alert, Oriented Scripts Tamsulosin HCl (Flomax) 0.4 Mg Capsule 0.4 MG PO HS, #30 CAP Take 1 capsule, by mouth, one time a day at BEDTIME. Prov: AISLINN HARMAN MD 01/08/17 Ondansetron HCl (Zofran) 4 Mg Tablet 4 MG PO Q6H for NAUSEA, #30 TAB Prov: AISLINN HARMAN MD 01/08/17 Oxycodone HCl/Acetaminophen (Percocet 5-325 mg Tablet) 5-325 Tablet 1-2 TAB PO QID for PAIN, #15 TAB Take 1 tablet, by mouth, 4 times a day. Prov: AISLINN HARMAN MD 01/08/17 HPI - Abdominal Pain General Chief Complaint: Abdominal Pain Stated Complaint: ABD PAIN RIGHT SIDE, RIGHT LEG PAIN Time Seen by Provider: 12:31 HPI - Abdominal Pain Initial Comments 31-year-old female presents with abdominal pain. Flank pain on the right radiating around to the front. No fevers or chills, has had some nausea with no vomiting. No difficulty urinating and no dysuria. She has a history of kidney stone cannot remember how big it was but thinks it was a "size 9". This onset this morning. Allergies: Coded Allergies: Penicillins (Verified Allergy, Unknown, RASH, 01/08/17) amoxicillin (Verified Allergy, Unknown, RASH, 01/08/17) Past History Patient Medical History Problem List Updates: History of kidney stones Surgical History Denies Surgeries Social History Substance Use Type: does not use Record Review Pertinent history updated: Yes Review of Systems General: see HPI Female: see HPI All other Systems All Other Systems: Reviewed and Negative Physical Exam General General Nourishment: no acute distress, adult, thin Vitals and Pain First Documented Vital Signs Date Time Temp Pulse Resp B/P Pulse Ox O2 Delivery O2 Flow Rate FiO2 01/08/17 12:02 97.9 67 16 121/72 100 Room Air Weight: Kilograms: 46.700 Height (feet): 5 Height (inches): 2.00 Triage Pain Scale: Normal Exams: Head: Normocephalic w/o trauma Chest/Resp: Clear all [place], with good airflow, and symmetry bilaterally CV: Regular rate and rhythm, without murmur or gallop, Pulses 2+ all extremities, capillary refill, <2 seconds all ext., no pedal edema noted Abdomen (brief) Comments Bowel sounds positive, no masses palpable. Patient is tender to light touch on the right lower quadrant. No tenderness to flank palpation. Differential Diagnoses Considering: Ectopic , Ovarian Cyst, Ovarian Torsion, Pyelonephritis, Renal Colic, Ulcerative Colitis, UTI Progress Results/Orders Orders Procedure Category Date Status Time Iv Lock (Ed Only) EDM 01/08/17 Transmitted 12:38 Cbc W/Auto LAB 01/08/17 Complete Diff-Reflex Manual 12:38 Cmp - Comprehensive LAB 01/08/17 Complete Metabolic 12:38 Lipase LAB 01/08/17 Complete 12:38 LAB 01/08/17 Complete Qualitative, Urine 12:38 Ct Renal W/O Contrast CT 01/08/17 Resulted 12:38 Morphine Sulfate PHA 01/08/17 Complete (Morphine) 12:45 Ondansetron Inj PHA 01/08/17 Complete (Zofran) 12:45 Ketorolac (Toradol) PHA 01/08/17 Complete 12:45 UA, LAB 01/08/17 Complete Dip&Micro(Complete) & 14:01 Urine Culture MERRY 01/08/17 In Process 14:20 Lab Results Laboratory Tests Test 01/08/17 12:52 01/08/17 14:01 White Blood Count 10.0T/MM3 Red Blood Count 4.57M/MM3 Hemoglobin 13.4GM/DL Hematocrit 39.8% Mean Corpuscular Volume 87.1UM3 Mean Corpuscular Hemoglobin 29.3UUG Mean Corpuscular Hemoglobin Concent 33.7GM/DL RDW Standard Deviation 42.6FL Platelet Count 149T/MM3 Mean Platelet Volume 10.3UM3 Immature Granulocyte % (Auto) 0.2% Neutrophils (%) (Auto) 75.3% Lymphocytes (%) (Auto) 16.3% Monocytes (%) (Auto) 7.7% Eosinophils (%) (Auto) 0.3% Basophils (%) (Auto) 0.2% Absolute Immature Granulocyte (auto 0.02T/MM3 Absolute Neutrophils (auto) 7.6T/MM3 Absolute Lymphocytes (auto) 1.6T/MM3 Absolute Monocytes (auto) 0.8T/MM3 Absolute Eosinophils (auto) 0.0T/MM3 Absolute Basophils (auto) 0.0T/MM3 Turbidity < 20 Sodium Level 143MEQ/L Potassium Level 4.1MEQ/L Chloride Level 104MEQ/L Carbon Dioxide Level 26MEQ/L Anion Gap 13MEQ/L Blood Urea Nitrogen 12.0MG/DL Creatinine 0.8MG/DL Glomerular Filtration Rate Calc 85 BUN/Creatinine Ratio 15RATIO Glucose Level 104MG/DL Calculated Osmolality 275MOSM/KG Calcium Level 9.2MG/DL Total Bilirubin 0.50MG/DL Icterus Index < 2 Aspartate Amino Transf (AST/SGOT) 29U/L Alanine Aminotransferase (ALT/SGPT) 32U/L Alkaline Phosphatase 64U/L Total Protein 8.1G/DL Albumin 4.7G/DL Globulin 3.4G/DL Albumin/Globulin Ratio 1.4RATIO Lipase 75U/L Chemistry Specimen Hemolysis < 15 Urine Collection Type Cleancatch-midstream Urine Color Yellow Urine Turbidity Cloudy Urine pH 5.5 Urine Specific [place] >=1.030 Urine Protein 1+ Urine Glucose (UA) Negative Urine Ketones 1+ Urine Blood 3+ Urine Nitrite Positive Urine Bilirubin Negative Urine Urobilinogen 1.0EU/DL Urine Leukocyte Esterase Negative Urine RBC 20-30/HPF Urine WBC 3-5/HPF Urine Squamous Epithelial Cells None seen Urine Amorphous Urates Few Urine Bacteria 3+ Urine Culture Indicated Cult reflexed &setup Urine Test Negative Medications Current ED Medications Morphine Sulfate (Morphine) 2 mg O ONCE IV Last administered on 01/08/17 13: 08; Start 01/08/17 at 12:45; Stop 01/08/17 at 12:46; Status DC Ondansetron HCl (Zofran) 4 mg O ONCE IV Last administered on 01/08/17 13:06; Start 01/08/17 at 12:45; Stop 01/08/17 at 12:46; Status DC Ketorolac Tromethamine (Toradol) 30 mg O ONCE IV Last administered on t 14:13; Start 01/08/17 at 12:45; Stop 01/08/17 at 12:46; Status DC Progress Progress Patient was given 30 mg Toradol and 2 mg morphine IV. She does have small kidney stone on the right with chronic changes noted due to kidney stones. She' ll be discharged with Percocet for pain, and Zofran for nausea and Flomax to help dilate ureter. She will call and set up with Dr. Rivas for this week and be evaluated for the kidney stones. If pain worsens, she is welcome to return. She' ll also increase fluids. AISLINN HARMAN MD January 08, 2017 12:37
[2017-01-08] MEDS ORDERED: ONDANSETRON 4mg/2ml INJECTION IV ONE (12:45)
[2017-01-08] MEDS ORDERED: MORPHINE SULFATE 4 MG SYRINGE IV ONE (12:45)
[2017-01-08] MEDS ORDERED: KETOROLAC 30mg/ml INJECTION IV ONE (12:45)
[2017-01-08 12:59] LABS: BASOPHILS % (AUTO) 0.2 % (0-2); EOSINOPHILS % (AUTO) 0.3 % (0-4); HCT - HEMATOCRIT 39.8 % (36-46); HGB - HEMOGLOBIN 13.4 GM/DL (12-16); IMMATURE GRANULOCYTE # (AUTO) 0.02 T/MM3 (0.00-0.03); IMMATURE GRANULOCYTE % (AUTO) 0.2 % (0.0-0.5); LYMPHOCYTES # (AUTO) 1.6 T/MM3 (1-4.8); LYMPHOCYTES % (AUTO) 16.3 % (23-45); MEAN CORPUSCULAR HGB 29.3 UUG (26-34); MEAN CORPUSCULAR HGB CONC(MCHC 33.7 GM/DL (31-37); MEAN CORPUSCULAR VOLUME 87.1 UM3 (80-100); MEAN PLATELET VOLUME 10.3 UM3 (9.4-12.4); MONOCYTES # (AUTO) 0.8 T/MM3 (0-0.8); MONOCYTES % (AUTO) 7.7 % (0-9.0); NEUTROPHILS #(AUTO)-ABSOLUTE 7.6 T/MM3 (1.8-7.7); NEUTROPHILS % (AUTO) 75.3 % (33-66); RED BLOOD COUNT 4.57 M/MM3 (4.00-5.20)
[2017-01-08 13:11] LABS: ALBUMIN 4.7 G/DL (3.5-5.0); ALBUMIN/GLOBULIN RATIO 1.4 RATIO (1.1-2.2); ALKALINE PHOSPHATASE 64 U/L (38-126); ALT (SGPT) 32 U/L (9-52); ANION GAP 13 MEQ/L (5-15); AST (SGOT) 29 U/L (14-36); BUN/CREATININE RATIO 15 RATIO (6-26); CALCIUM 9.2 MG/DL (8.4-10.2); CHLORIDE 104 MEQ/L (98-107); CO2 - CARBON DIOXIDE 26 MEQ/L (22-30); CREATININE 0.8 MG/DL (0.7-1.2); GLOMERULAR FILTRATION RATE 85; GLUCOSE 104 MG/DL (65-110); LIPASE 75 U/L (23-300); POTASSIUM 4.1 MEQ/L (3.6-5); SODIUM 143 MEQ/L (134-144); TOTAL PROTEIN 8.1 G/DL (6.3-8.2)
--- OUTSIDE RECORDS SUMMARY | 2017-01-08 13:34 | XMS REPORT | Continuity of Care Document ---
Author Author [facility] Organization [facility] Address Unknown Phone Unavailable Allergies Active Description [...] Status Pt. Type Provider Facility Loc./Unit Complaint [id number] 10/27/2015 08:52:00 2015 13:12:00 DIS Emergency Nick GUILLEN, Jr [facility] E.ED [id number] 10/24/2015 08:08:00 2015 10:25:00 DIS Emergency Dale GUILLEN, Oscar Castro [facility] E.ED [id number] 10/18/2015 20:51:00 2015 22:39:00 DIS Emergency Teodoro GUILLEN, Newton Velez [facility] E.ED
--- NOTE | 2017-01-08 13:50 | NUR ---
REPORT TO HARMEET SNELL
[2017-01-08 14:07] LABS: BLOOD, URINE 3+ (NEGATIVE); COLOR,URINE YELLOW (YELLOW); LEUKOCYTE ESTERASE ,URINE NEGATIVE (NEGATIVE); NITRITE,URINE POSITIVE (NEGATIVE)
[2017-01-08 14:19] LABS: RBC,URINE 20-30 /HPF (0-3)
[2017-01-08 14:20] LABS: BACTERIA,URINE 3+ (NEGATIVE); SQUAMOUS EPITHELIAL CELL,UR NONE SEEN
--- NOTE | 2017-01-08 15:09 | DI ---
Indication: ITS.REASON: right flank pain, history of kidney stone CT RENAL W/O CONTRAST: Comparison: None Technique: Patient scanned without contrast from above the diaphragm to below the pubic symphysis. Dose reduction imaging technology with reformatted sagittal and coronal images provided. Findings: Heart size is within normal limits. Lung bases showed no acute findings. Patient shows significant rotoscoliosis stabilized by Johnson rods . Some artifact is caused by the metal in the spine however, no definitive significant liver lesions are appreciated. Spleen is unremarkable. Pancreas and both adrenals are unremarkable. Right kidney shows obstructive uropathy. There are several small 2 mm stones identified in the lower pole the right kidney. The right ureter is significantly dilated down to the pelvis. There are calcifications although I am somewhat uncertain as to whether the stone is in the distal ureter. A calcification is identified that does measure over 6 mm. In the right ureter. A calcification in the pelvis is difficult to determine if it resides in the distal ureter. Left kidney is demonstrating no obstruction, mass, cyst or abnormal calcifications. Retroperitoneum is unremarkable. Imaging in the pelvis shows scattered diverticular changes. No obstruction or significant free air or free fluid seen.. Impression: 1. Extensive instrumentation of the spine. 2. Obstructive changes involving the right kidney and right ureter. I'm somewhat uncertain as whether a calcification in the pelvis is in the distal ureter. Retrograde studies would be recommended. Patient does show some small calcifications in the lower pole the right kidney. These however measure less than 2 mm. 3. No obstruction to the bowel. .
[2017-01-08] MEDS ORDERED: OXYC1TAB8 PO (15:55)
[2017-01-08] MEDS ORDERED: TAMS-1 PO (15:55)
[2017-01-08] MEDS ORDERED: ONDA4TAB4 PO (15:55)
[2017-01-08 16:06] VITALS: BP 104/58; PULSE 67; RESP 16; TEMP 97.9; O2SAT 100
== END 2017-01-08 16:06 | disposition home or self-care (01) ==
LOC: ED 11:58
DX: N20.0 Calculus of kidney (principal); Z87.442 Personal history of urinary calculi
CPT/HCPCS: 80053; 81001; 81025; 83690; 85025; 87086

== ENCOUNTER 2017-01-10 20:33 | Emergency (ER) | payer SELFPAY ==
[~2017-01-10] VITALS: Ht 157.5 cm; Wt 46.0 kg
[~2017-01-10 20:33] MED LIST: ONDA4TAB4 PO; OXYC1TAB8 PO; TAMS-1 PO
--- OUTSIDE RECORDS SUMMARY | 2017-01-10 20:38 | XMS REPORT | Continuity of Care Document ---
Author Author [facility] Organization [facility] Address Unknown Phone Unavailable Support Name Relationship Address Phone AISLINN HARMAN MD Caregiver [address] [place] [phone] Unavailable OTHER Caregiver Unknown Unavailable NOAHFELICITA Next Of Kin [address] [phone] Insurance Providers Guarantor Latasha Camacho Address [address] [place] [address] Email DENIED 17 Payer Self Pay Subscriber's Name Latasha Camacho Relationship 18 Self Advance Directives Directive Response Recorded Date/Time Advanced Directives Type None 01/08/17 12:02pm Chief Complaint and Reason for Visit Chief Complaint Abdominal Pain Reason for Visit Kidney stone Problems Past Problems Medical Problem Onset Date Kidney stone Unknown Medications Current Home Medications Medication Dose Units Route Directions Days Qty Instructions Start Date None Daily 01/08/17 Ondansetron Hcl (Zofran) 4 Mg Tablet 4 Mg Oral Every 6 Hours for Nausea 30 Tablet 01/08/17 Oxycodone Hcl/Acetaminophen (Percocet 5-325 Mg Tablet) 5-325 Tablet 1-2 Tab Oral Four Times Daily for Pain 15 Tablet Take 1 tablet, by mouth, 4 times a day. 01/08/17 Tamsulosin Hcl (Flomax) 0.4 Mg Capsule 0.4 Mg Oral Bedtime 30 Capsule Take 1 capsule, by mouth, one time a day at BEDTIME. 01/08/17 Social History Social History Problem Response Recorded Date/Time Onset Date Status Hx Substance Use No 01/08/2017 12:07pm Not Applicable Not Applicable Hx Alcohol Use No 01/08/2017 12:07pm Not Applicable Not Applicable Query Response Start Date Stop Date Smoking Status Current every day smoker Hospital Discharge Instructions No hospital discharge instructions. Plan of Care Discharge Date 01/08/17 4:06pm Disposition 01 DISCHARGED HOME, SELF-CARE Condition at Discharge Improved Instructions/Education Provided Kidney Stones (ED) Prescriptions See Medication Section Referrals OTHER Additional Instructions/Education Increase fluid. Percocet 5 mg, one to 2 tabs every 6 hours as needed for pain. Zofran 4 mg, one tablet every 6 hours as needed for nausea. Flomax 0.4 mg daily[address] Please contact Dr. Rivas at the number listed above to set up an appointment for evaluation this week. Functional Status No functional status results. Allergies, Adverse Reactions, Alerts Allergen Type Severity Reaction Status Last Updated Penicillin Allergy Unknown RASH Active 01/08/17 Amoxicillin Allergy Unknown RASH Active 01/08/17 Immunizations Query Response on File Recorded Date/Time Influenza Vaccine Hx NONE 01/08/17 12:07pm Vital Signs Acute Vital Signs Vital Response Date/Time Temperature (Fahrenheit) 97.9 deg F (96.8 - 99.1) 01/08/2017 4:06pm Temperature (Calculated Celsius) 36.12250 degrees C (36.0 - 37.3) 01/08/2017 4:06pm Pulse Rate (adult) 67 bpm (60 - 100) 01/08/2017 4:06pm Respiratory Rate 16 breaths/min (10 - 20) 01/08/2017 4:06pm O2 Sat by Pulse Oximetry 100 % (90 - 100) 01/08/2017 4:06pm Blood Pressure 104/58 mm Hg 01/08/2017 4:06pm Height (Feet) 5 feet 01/08/2017 12:02pm Height (Inches) 2.00 inches 01/08/2017 12:02pm Weight (Kilograms) 46.700 kg 01/08/2017 12:02pm Body Mass Index (BMI) 18.0 01/08/2017 12:02pm Results Laboratory Results Test Name Result Units Flags Reference Collection Date/Time Result Date/ Time Comments White Blood Count 10.0 T/MM3 4.5-11.0 01/08/2017 12:52pm 01/08/2017 12: 59pm Red Blood Count 4.57 M/MM3 4.00-5.20 01/08/2017 12:52pm 01/08/2017 12: 59pm Hemoglobin 13.4 GM/DL 12-16 01/08/2017 12:52pm 01/08/2017 12:59pm Hematocrit 39.8 % 36-46 01/08/2017 12:52pm 01/08/2017 12:59pm Mean Corpuscular Volume 87.1 UM3 80-100 01/08/2017 12:5201/08/2017 12:59pm Mean Corpuscular Hemoglobin 29.3 UUG 26-34 01/08/2017 12:52pm 2016 12:59pm Mean Corpuscular Hemoglobin Concent 33.7 GM/DL 31-37 01/08/2017 12:01/08/2017 12:59pm RDW Standard Deviation 42.6 FL 36.9-50.2 01/08/2017 12:52pm 01/08/2017 12:59pm Platelet Count 149 T/MM3 130-400 01/08/2017 12:5201/08/2017 12:59pm Mean Platelet Volume 10.3 UM3 9.4-12.4 01/08/2017 12:52pm 01/08/2017 12 :59pm Neutrophils (%) (Auto) 75.3 % H 33-66 01/08/2017 12:01/08/2017 12: 59pm Lymphocytes (%) (Auto) 16.3 % L 23-45 01/08/2017 12:01/08/2017 12: 59pm Monocytes (%) (Auto) 7.7 % 0-9.0 01/08/2017 12:pm 01/08/2017 12:59pm Eosinophils (%) (Auto) 0.3 % 0-4 01/08/2017 12:01/08/2017 12:59pm Basophils (%) (Auto) 0.2 % 0-2 01/08/2017 12:01/08/2017 12:59pm Immature Granulocyte % (Auto) 0.2 % 0.0-0.5 01/08/2017 12:2016 12:59pm Absolute Neutrophils (auto) 7.6 T/MM3 1.8-7.7 01/08/2017 12:2016 12:59pm Absolute Lymphocytes (auto) 1.6 T/MM3 1-4.8 01/08/2017 12:2016 12:59pm Absolute Monocytes (auto) 0.8 T/MM3 0-0.8 01/08/2017 12:52pm 2016 12:59pm Absolute Eosinophils (auto) 0.0 T/MM3 0-0.5 01/08/2017 12:2016 12:59pm Absolute Basophils (auto) 0.0 T/MM3 0-0.2 01/08/2017 12:52pm 2016 12:59pm Absolute Immature Granulocyte (auto 0.02 T/MM3 0.00-0.03 01/08/2017 12: 52pm 01/08/2017 12:59pm Icterus Index < 2 0-7 01/08/2017 12:52pm 01/08/2017 1:11pm Chemistry Specimen Hemolysis < 15 0-25 01/08/2017 12:01/08/2017 1:11pm 0-25: Specimen Exhibited No Hemolysis. Turbidity < 20 0-20 01/08/2017 12:52pm 01/08/2017 1:11pm Sodium Level 143 MEQ/L 134-144 01/08/2017 12:01/08/2017 1:11pm Potassium Level 4.1 MEQ/L 3.6-5 01/08/2017 12:5201/08/2017 1:11pm Chloride Level 104 MEQ/L 98-107 01/08/2017 12:01/08/2017 1:11pm Carbon Dioxide Level 26 MEQ/L 22-30 01/08/2017 12:01/08/2017 1: 11pm Anion Gap 13 MEQ/L 5-15 01/08/2017 12:01/08/2017 1:11pm Blood Urea Nitrogen 12.0 MG/DL 7-17 01/08/2017 12:01/08/2017 1: 11pm Creatinine 0.8 MG/DL 0.7-1.2 01/08/2017 12:01/08/2017 1:11pm BUN/Creatinine Ratio 15 RATIO 6-26 01/08/2017 12:01/08/2017 1: 11pm Glomerular Filtration Rate Calc 85 01/08/2017 12:01/08/2017 1: 11pm Glucose Level 104 MG/DL 65-110 01/08/2017 12:01/08/2017 1:11pm Calculated Osmolality 275 MOSM/KG 261-280 01/08/2017 12:2016 1:11pm Calcium Level 9.2 MG/DL 8.4-10.2 01/08/2017 12:01/08/2017 1:11pm Total Bilirubin 0.50 MG/DL 0.20-1.30 01/08/2017 12:52pm 01/08/2017 1: 11pm Alkaline Phosphatase 64 U/L 38-126 01/08/2017 12:52pm 01/08/2017 1: 11pm Total Protein 8.1 G/DL 6.3-8.2 01/08/2017 12:52pm 01/08/2017 1:11pm Albumin 4.7 G/DL 3.5-5.0 01/08/2017 12:52pm 01/08/2017 1:11pm Globulin 3.4 G/DL 2.4-3.6 01/08/2017 12:52pm 01/08/2017 1:11pm Albumin/Globulin Ratio 1.4 RATIO 1.1-2.2 01/08/2017 12:52pm 01/08/2017 1:11pm Aspartate Amino Transf (AST/SGOT) 29 U/L 14-36 01/08/2017 12:52pm 01/08 1:11pm Alanine Aminotransferase (ALT/SGPT) 32 U/L 9-52 01/08/2017 12:52pm 1:11pm Lipase 75 U/L 23-300 01/08/2017 12:52pm 01/08/2017 1:11pm Urine Collection Type CLEANCATCH-MIDSTREAM 01/08/2017 2:012016 2:07pm Urine Color YELLOW YELLOW 01/08/2017 2:01pm 01/08/2017 2:07pm Urine Turbidity CLOUDY CLEAR 01/08/2017 2:01pm 01/08/2017 2:07pm Urine Specific [place] >=1.030 H 1.015-1.025 01/08/2017 2:012016 2:07pm Urine pH 5.5 5.0-8.0 01/08/2017 2:01pm 01/08/2017 2:07pm Urine Leukocyte Esterase NEGATIVE NEGATIVE 01/08/2017 2:012016 2:07pm Urine Nitrite POSITIVE A NEGATIVE 01/08/2017 2:01pm 01/08/2017 2:07pm Urine Protein 1+ A NEGATIVE 01/08/2017 2:01pm 01/08/2017 2:07pm Urine Glucose (UA) NEGATIVE NEGATIVE 01/08/2017 2:01pm 01/08/2017 2: 07pm Urine Ketones 1+ A NEGATIVE 01/08/2017 2:01pm 01/08/2017 2:07pm Urine Urobilinogen 1.0 EU/DL NORMAL 01/08/2017 2:01pm 01/08/2017 2: 07pm Urine Bilirubin NEGATIVE NEGATIVE 01/08/2017 2:01pm 01/08/2017 2: 07pm Urine Blood 3+ A NEGATIVE 01/08/2017 2:01pm 01/08/2017 2:07pm Urine WBC 3-5 /HPF 0-5 01/08/2017 2:01pm 01/08/2017 2:20pm Urine RBC 20-30 /HPF H 0-3 01/08/2017 2:01pm 01/08/2017 2:20pm Urine Squamous Epithelial Cells NONE SEEN 01/08/2017 2:01pm 2016 2:20pm Urine Bacteria 3+ H NEGATIVE 01/08/2017 2:01pm 01/08/2017 2:20pm Urine Amorphous Urates FEW 01/08/2017 2:01pm 01/08/2017 2:20pm Urine Culture Indicated CULT REFLEXED &SETUP 01/08/2017 2:01pm 2:20pm Microbiology Results Procedure Source Organism/Result Collection Date/Time Result Date/Time Result Status Urine Culture Urine, Clean Catch-Midstream CULTURE INITIATED - RESULTS PENDING 01/08/2017 2:20pm 01/08/2017 2:21pm Preliminary Name: LATASHA CAMACHO Unit #: [id number] : 1985 Sex: F Admit Date: Loc / Svc: ED Discharge Date: DIAGNOSTIC IMAGING REPORT Report #: [id number] [facility] RICKEY Perera Indication: ITS.REASON: right flank pain, history of kidney stone CT RENAL W/O CONTRAST: Comparison: None Technique: Patient scanned without contrast from above the diaphragm to below the pubic symphysis. Dose reduction imaging technology with reformatted sagittal and coronal images provided. Findings: Heart size is within normal limits. Lung bases showed no acute findings. Patient shows significant rotoscoliosis stabilized by Johnson rods . Some artifact is caused by the metal in the spine however, no definitive significant liver lesions are appreciated. Spleen is unremarkable. Pancreas and both adrenals are unremarkable. Right kidney shows obstructive uropathy. There are several small 2 mm stones identified in the lower pole the right kidney. The right ureter is significantly dilated down to the pelvis. There are calcifications although I am somewhat uncertain as to whether the stone is in the distal ureter. A calcification is identified that does measure over 6 mm. In the right ureter. A calcification in the pelvis is difficult to determine if it resides in the distal ureter. Left kidney is demonstrating no obstruction, mass, cyst or abnormal calcifications. Retroperitoneum is unremarkable. Imaging in the pelvis shows scattered diverticular changes. No obstruction or significant free air or free fluid seen.. Impression: 1. Extensive instrumentation of the spine. 2. Obstructive changes involving the right kidney and right ureter. I'm somewhat uncertain as whether a calcification in the pelvis is in the distal ureter. Retrograde studies would be recommended. Patient does show some small calcifications in the lower pole the right kidney. These however measure less than 2 mm. 3. No obstruction to the bowel. . Procedures No known history of procedures. Encounters Encounter Location Arrival/Admit Date Discharge/Depart Date Attending Provider Departed Emergency Room [facility] 01/08/17 11:58am 01/08/17 4: 06pm AISLINN HARMAN MD Recent Diagnosis
--- OUTSIDE RECORDS SUMMARY | 2017-01-10 20:38 | XMS REPORT | Continuity of Care Document ---
Author Author [facility] Organization [facility] Address Unknown Phone Unavailable Allergies Active Description [...] Status Pt. Type Provider Facility Loc./Unit Complaint [id number] 10/27/2015 08:52:00 2015 13:12:00 DIS Emergency Nick GUILLEN, Jr [facility] E.ED [id number] 10/24/2015 08:08:00 2015 10:25:00 DIS Emergency Dale GUILLEN, Oscar Castro [facility] E.ED [id number] 10/18/2015 20:51:00 2015 22:39:00 DIS Emergency Teodoro GUILLEN, Newton Velez [facility] E.ED
[2017-01-10 20:49] VITALS: Ht 157.5 cm; Wt 46.0 kg
[2017-01-10 21:18] LABS: BLOOD, URINE 3+ (NEGATIVE); COLOR,URINE YELLOW (YELLOW); LEUKOCYTE ESTERASE ,URINE NEGATIVE (NEGATIVE); NITRITE,URINE NEGATIVE (NEGATIVE)
[2017-01-10 21:23] LABS: SQUAMOUS EPITHELIAL CELL,UR >50; WBC,URINE 50-200 /HPF (0-5)
[2017-01-10 21:24] LABS: BACTERIA,URINE 3+ (NEGATIVE); WBC CLUMPS,URINE FEW
--- OUTSIDE RECORDS SUMMARY | 2017-01-10 22:08 | XMS REPORT | Continuity of Care Document ---
Author Author [facility] Organization [facility] Address Unknown Phone Unavailable Allergies Active [...] Status Pt. Type Provider Facility Loc./Unit Complaint [id number] 10/27/2015 08:52:00 2015 13:12:00 DIS Emergency Nick GUILLEN, Jr [facility] E.ED [id number] 10/24/2015 08:08:00 2015 10:25:00 DIS Emergency Dale GUILLEN, Oscar Castro [facility] E.ED [id number] 10/18/2015 20:51:00 2015 22:39:00 DIS Emergency Teodoro GUILLEN, Newton Velez [facility] E.ED
[2017-01-10 22:17] LABS: HCT - HEMATOCRIT 36.4 % (36-46); HGB - HEMOGLOBIN 12.4 GM/DL (12-16); MEAN CORPUSCULAR HGB 29.8 UUG (26-34); MEAN CORPUSCULAR HGB CONC(MCHC 34.1 GM/DL (31-37); MEAN CORPUSCULAR VOLUME 87.5 UM3 (80-100); MEAN PLATELET VOLUME 10.3 UM3 (9.4-12.4); RED BLOOD COUNT 4.16 M/MM3 (4.00-5.20); WBC - WHITE BLOOD COUNT 13.8 T/MM3 (4.5-11.0)
[2017-01-10 22:23] LABS: LYMPHOCYTES # (MANUAL) 0.4 T/MM3 (1-4.8); MONOCYTES # (MANUAL) 1.1 T/MM3 (0-0.8); REACTIVE LYMPHOCYTES # 0.3 T/MM3 (0-0); TOTAL CELLS COUNTED 100 %
[2017-01-10 22:26] LABS: ALBUMIN 4.2 G/DL (3.5-5.0); ALBUMIN/GLOBULIN RATIO 1.3 RATIO (1.1-2.2); ALKALINE PHOSPHATASE 59 U/L (38-126); ALT (SGPT) 40 U/L (9-52); ANION GAP 12 MEQ/L (5-15); AST (SGOT) 23 U/L (14-36); BUN/CREATININE RATIO 19 RATIO (6-26); CALCIUM 8.8 MG/DL (8.4-10.2); CHLORIDE 101 MEQ/L (98-107); CO2 - CARBON DIOXIDE 26 MEQ/L (22-30); GLOMERULAR FILTRATION RATE 66; GLUCOSE 106 MG/DL (65-110); POTASSIUM 3.8 MEQ/L (3.6-5); SODIUM 139 MEQ/L (134-144); TOTAL PROTEIN 7.5 G/DL (6.3-8.2)
[2017-01-10 22:31] LABS: BLOOD, URINE 2+ (NEGATIVE); COLOR,URINE YELLOW (YELLOW); LEUKOCYTE ESTERASE ,URINE NEGATIVE (NEGATIVE); NITRITE,URINE NEGATIVE (NEGATIVE)
[2017-01-10 22:36] LABS: BACTERIA,URINE 3+ (NEGATIVE); MUCUS,URINE PRESENT; SQUAMOUS EPITHELIAL CELL,UR 0-5; WBC CLUMPS,URINE FEW
--- NOTE | 2017-01-10 22:36 | ERPDOC ---
Departure Disposition Decision Date: January 10, 2017 Disposition Decision Time: 22:49 Disposition: 01 DISCHARGED HOME, SELF-CARE Impression Impression Impression: Primary Impression: Pyelonephritis Severity: Moderate Condition: Improved Seen By: Physician only Problems/Meds/Labs Reviewed?: Yes Medications reviewed and manag: Yes Additional Instructions: Keflex 500 mg, 2 tabs twice daily. Bactrim DS, one tab twice daily. Zofran as needed for nausea. Percocet if needed for pain. You have some from the initial kidney stone prescription. Follow up care ordered?: Yes Mental Status: Alert, Oriented Scripts Ondansetron HCl (Zofran) 4 Mg Tablet 4 MG PO Q6H for NAUSEA, #30 TAB Prov: AISLINN HARMAN MD 01/10/17 Sulfamethoxazole/Trimethoprim (Bactrim Ds Tablet) 1 Each Tablet 1 TAB PO BID, #20 TAB Take 1 tablet, by mouth, 2 times a day. Prov: AISLINN HARMAN MD 01/10/17 Cephalexin (Keflex) 500 Mg Capsule 2 CAP PO BID, #40 CAP Prov: AISLINN HARMAN MD 01/10/17 HPI - Fever General Chief Complaint: Fever Stated Complaint: FEVER Time Seen by Provider: 22:02 HPI - Fever Initial Comments 31-year-old female returns to ED with fever. Patient was seen on Sunday with kidney stone, diagnosed on CT scan. She was discharged on treatment for the kidney stone, and passed at that evening. However she has had fever and nausea since that evening. She is concerned that the fever is not abating. She has no other illness, pain has resolved. She has thrown up a couple of times, not had much desire to drink fluids, and feels very dry. Plus dysuria, frequency, urgency. She was on her period on Sunday, today should be the last day that she is menstruating. Allergies: Coded Allergies: Penicillins (Verified Allergy, Unknown, RASH, 01/08/17) amoxicillin (Verified Allergy, Unknown, RASH, 01/08/17) Past History Surgical History Denies Surgeries Social History Substance Use Type: does not use Record Review Pertinent history updated: Yes Review of Systems Constitutional Constitutional: see HPI GI Upper Abdomen: see HPI General: dysuria, frequency, see HPI, urgency All other Systems All Other Systems: Reviewed and Negative Physical Exam General General Nourishment: appears stated age, adult, thin General Body Habitus: well groomed Vitals and Pain First Documented Vital Signs Date Time Temp Pulse Resp B/P Pulse Ox O2 Delivery O2 Flow Rate FiO2 01/10/17 20:49 99.0 72 14 102/62 96 Room Air Weight: Kilograms: 46.000 Height (feet): 5 Height (inches): 2.00 Triage Pain Scale: Normal Exams: Head: Normocephalic w/o trauma Chest/Resp: Clear all [place], with good airflow, and symmetry bilaterally CV: Regular rate and rhythm, without murmur or gallop, Pulses 2+ all extremities, capillary refill, <2 seconds all ext., no pedal edema noted Abdomen: Bowel sounds positive, non-distended, no hepatosplenomegaly, masses or bruits noted Neurologic: Patient is alert, and oriented, cranial nerves, motor/sensory/ cerebellar, exams w/o gross deficits, to observation Psychiatric: Patient exhibits, appropriate attention, emotion and affect Differential Diagnoses Considering: Other (UTI, pyelonephritis, infected kidney stone) Progress Results/Orders Orders Procedure Category Date Status Time UA, LAB 01/10/17 Complete Dip&Micro(Complete) & 21:04 Urine Culture MERRY 01/10/17 In Process 21:25 Normal Saline (Normal PHA 01/10/17 In Process Saline Iv) 22:15 Ketorolac (Toradol) PHA 01/10/17 Complete 22:15 Ondansetron Inj PHA 01/10/17 Complete (Zofran) 22:15 Iv Lock (Ed Only) EDM 01/10/17 Transmitted 22:04 Cbc W/Auto LAB 01/10/17 Complete Diff-Reflex Manual Cmp - Comprehensive LAB 01/10/17 Complete Metabolic UA, LAB 01/10/17 Complete Dip&Micro(Complete) & 22:27 Urine Culture MERRY 01/10/17 In Process 22:36 Ceftriaxone I.V. (Er PHA 01/10/17 Transmitted Use Only) (Rocephin 22:45 Lab Results Laboratory Tests Test 01/10/17 21:04 01/10/17 22:13 01/10/17 22:27 Urine Collection Type Cleancatch-midstream Straight cath Urine Color Yellow Yellow Urine Turbidity Cloudy Cloudy Urine pH 5.5 5.5 Urine Specific [place] 1.020 1.025 Urine Protein 2+ 2+ Urine Glucose (UA) Negative Negative Urine Ketones 2+ 2+ Urine Blood 3+ 2+ Urine Nitrite Negative Negative Urine Bilirubin 2+ 1+ Urine Urobilinogen 1.0EU/DL 1.0EU/DL Urine Leukocyte Esterase Negative Negative Urine RBC 1-3/HPF 1-3/HPF Urine WBC 50-200/HPF 10-20/HPF Urine WBC Clumps Few Few Urine Squamous Epithelial Cells >50 0-5 Urine Bacteria 3+ 3+ Urine Culture Indicated Cult reflexed &setup Cult reflexed &setup White Blood Count 13.8T/MM3 Red Blood Count 4.16M/MM3 Hemoglobin 12.4GM/DL Hematocrit 36.4% Mean Corpuscular Volume 87.5UM3 Mean Corpuscular Hemoglobin 29.8UUG Mean Corpuscular Hemoglobin Concent 34.1GM/DL RDW Standard Deviation 42.7FL Platelet Count 95T/MM3 Mean Platelet Volume 10.3UM3 Immature Granulocyte % (Auto) % Neutrophils (%) (Auto) % Lymphocytes (%) (Auto) % Monocytes (%) (Auto) % Eosinophils (%) (Auto) % Basophils (%) (Auto) % Absolute Immature Granulocyte (auto T/MM3 Absolute Neutrophils (auto) T/MM3 Absolute Lymphocytes (auto) T/MM3 Absolute Monocytes (auto) T/MM3 Absolute Eosinophils (auto) T/MM3 Absolute Basophils (auto) T/MM3 Neutrophils % (Manual) 58.0% Band Neutrophils % 29.0% Lymphocytes % (Manual) 3.0% Reactive Lymphocytes % 2.0% Monocytes % (Manual) 8.0% Absolute Neutrophils (Manual) 8.0T/MM3 Band Neutrophils # 4.0T/MM3 Lymphocytes # (Manual) 0.4T/MM3 Reactive Lymphocytes # 0.3T/MM3 Monocytes # (Manual) 1.1T/MM3 Red Cell Morphology Comment Normal Turbidity < 20 Sodium Level 139MEQ/L Potassium Level 3.8MEQ/L Chloride Level 101MEQ/L Carbon Dioxide Level 26MEQ/L Anion Gap 12MEQ/L Blood Urea Nitrogen 19.0MG/DL Creatinine 1.0MG/DL Glomerular Filtration Rate Calc 66 BUN/Creatinine Ratio 19RATIO Glucose Level 106MG/DL Calculated Osmolality 270MOSM/KG Calcium Level 8.8MG/DL Total Bilirubin 0.80MG/DL Icterus Index < 2 Aspartate Amino Transf (AST/SGOT) 23U/L Alanine Aminotransferase (ALT/SGPT) 40U/L Alkaline Phosphatase 59U/L Total Protein 7.5G/DL Albumin 4.2G/DL Globulin 3.3G/DL Albumin/Globulin Ratio 1.3RATIO Chemistry Specimen Hemolysis < 15 Urine Mucus Present Medications Current ED Medications Sodium Chloride (Normal Saline IV) 1,000 ml @ 1,000 mls/hr Q1H ONCE IV ; Start 01/10/17 at 22:15; Stop 01/10/17 at 23:14 Ketorolac Tromethamine (Toradol) 30 mg O ONCE IV ; Start 01/10/17 at 22:15; Stop 01/10/17 at 22:17; Status DC Ondansetron HCl (Zofran) 4 mg O ONCE IV ; Start 01/10/17 at 22:15; Stop at 22:17; Status DC Progress Progress Patient presented afebrile, did see a stone pass Sunday night and has no pain or nausea at this time. White count elevated at 13.8 with 29% bands. UA was repeated with catheter specimen and showed 3+ bacteria with 0-5 epithelial. Patient was given Rocephin 1 g IV, normal saline 1 L IV, Zofran 4 mg IV and Toradol 30 mg IV. She will be discharged on Bactrim DS twice a day for 10 days, Keflex 500 mg 2 tabs twice daily for 10 days. She is to follow-up with urology due to the history of kidney stone. She has no more pain or symptom from the kidney stone of prefer not to do a CT scan tonight. I think that is reasonable as long as she follows up carefully. If her symptoms are worsening she is to return to the emergency department immediately. Patient is afebrile. AISLINN HARMAN MD January 10, 2017 22:35
[2017-01-10] MEDS: NORMAL SALINE 1,000 ML IV ONE (22:44)
[2017-01-10] MEDS: ONDANSETRON 4mg/2ml INJECTION IV ONE (22:48)
[2017-01-10] MEDS: KETOROLAC 30mg/ml INJECTION IV ONE (22:49)
[2017-01-10] MEDS ORDERED: ONDA4TAB4 PO (22:52)
[2017-01-10] MEDS ORDERED: CEPH-583 PO (22:52)
[2017-01-10] MEDS ORDERED: SULF1TAB42 PO (22:52)
[2017-01-10] MEDS: CEFTRIAXONE I.V. (ER USE ONLY) 1 G in NORMAL SALINE 100 ML IV ONE (22:56)
--- NOTE | 2017-01-10 23:00 | NUR ---
Report Report given to Roberto Drummond RN
--- NOTE | 2017-01-11 00:15 | NUR ---
PT STATUS/PROVIDER NOTIFIED PT STATES SHE IS FEELING MUCH BETTER AND SHE IS READY TO GO HOME. PT SHOWS NO SIGNS OF DISTRESS, IV FLUIDS STILL RUNNING. DR. HARMAN ADVISED THAT PT COULD GO HOME WITHOUT FULL FLUIDS.
[2017-01-11 00:31] VITALS: BP 94/54; PULSE 68; RESP 14; TEMP 98.8; O2SAT 99
== END 2017-01-11 00:33 | disposition home or self-care (01) ==
LOC: ED 20:33
DX: N12 Tubulo-interstitial nephritis, not specified as acute or chronic (principal)
CPT/HCPCS: 36000; 51701; 80053; 81001; 85025; 87077; 87086; 87186